=== PATIENT | male | born 1940 | race Caucasian/White ===

== ENCOUNTER 2017-08-28 17:14 | Observation (INO) ==
[2017-08-28 18:32] LABS: Hematocrit 41.6 % (42.0-52.0); Hemoglobin 13.3 gm/dL (13.5-18.0); Mean Cell Volume 93.9 fl (78-100); Mean Platelet Volume 8.6 fl (8-11.3); Neutrophil # 5.6 K/mm3 (1.3-6.0); Neutrophil % 67.5 % (42-75.0); Platelet Count 372 K/mm3 (150-450); Red Blood Count 4.43 M/mm3 (4.7-6.0); Red Cell Distribution Width 13.5 % (11.5-14.0); White Blood Count 8.3 K/mm3 (4.0-10.5)
[2017-08-28] MEDS: NORMAL SALINE 1,000 ML IV SCH ×2 (18:35→21:39)
[2017-08-28 18:56] LABS: Anion Gap 11.3 mmol/L (6.8-13.8); BUN/Creatinine Ratio 11.3 (9.0-21.6); Bilirubin, Total 0.4 mg/dL (0.0-1.1); Ca. Corrected For Albumin 9.5 mg/dL (8.4-10.2); Carbon Dioxide 31.1 mmol/L (24-32.6); Potassium 3.4 mmol/L (3.4-4.6); Total Protein 8.2 gm/dL (6.2-8.2)
[2017-08-28 19:02] LABS: Hemoglobin A1C 6.3 % (4.00-6.0)
--- NOTE | 2017-08-28 19:35 | ERNOTE ---
Lower Extremity HPI - Narrative Date of Service: 08/28/17 - General Lower Extremities Pain: leg: bilateral, foot: bilateral Time Seen by Provider: 08/28/17 17:51 Source: patient, RN notes reviewed, old records Exam Limitations: no limitations - Immun/Allergies/Home Medications Immunizations: IMMUNIZATION HX Immunizations Up to Date Yes History of Influenza Vaccine More Information Required Hx Pneumococcal Vaccination More Information Required Allergies/Adverse Reactions: Allergies Allergy/AdvReac Type Severity Reaction Status Date / Time ibuprofen Allergy Severe Anaphylaxis Verified 10/06/15 16:55 Home Medications: HOME MEDICATIONS Albuterol Sulfate [Albuterol Sulfate 0.63 MG/3ML] 0.63 mg IH QID 07/01/15 [Last Taken 10/06/15] Divalproex Sodium [Depakote ER] 500 mg PO HS #30 tab.sr.24h 10/09/15 [Last Taken Unknown] Levofloxacin [Levaquin] 750 mg PO QOD #7 tablet 10/09/15 [Last Taken Unknown] Silver Sulfadiazine [Silvadene] 1 appl TP DAILY #400 jar 10/09/15 [Last Taken Unknown] Spironolactone [Aldactone] 25 mg PO BID #60 tablet 10/09/15 [Last Taken Unknown] - History of Present Illness Narrative: Noah is a 76 year old male patient of Dr. Romero who is brought to the ED from home by a friend for increased drainage and pain in his lower legs. He reports that his legs have been edematous and red for quite sometime, but they are much worse today. He has not seen his doctor for almost 2 years. He reports not being able to afford his medication so he just stopped taking all of it. He is diabetic, has CHF and has chronic venous stasis in both legs. He reports that he washed his legs today, but his hygiene is very poor. Prior Treament: Reports: similar symptoms before. Denies: recently seen, treated by physician, currently on antibiotics Review of Systems - Review of Systems Constitutional: Present: fatigue. Absent: fever, chills EYE: Present: no symptoms reported ENT: Present: no symptoms reported Respiratory: Present: shortness of breath, cough Cardiology: Present: edema. Absent: chest pain Gastrointestinal/Abdominal: Absent: nausea, vomiting Genitourinary: Absent: dysuria, decreased urinary output Musculoskeletal: Present: muscle pain. Absent: joint pain, joint swelling Skin: Present: lesions, change in color. Absent: rash, lumps Neurological: Absent: headache, dizziness/light-headedness, weakness Endocrine: Present: no symptoms reported Hematologic/Lymphatic: Absent: easy bruising, easy bleeding Psych: Present: no symptoms reported - Patient's Past Medical History Patient History - Medical: Diabetes Type 2, Obesity, Osteoarthritis Patient History - Cardiac/Respiratory: CHF, COPD, Peripheral Vascular Disease Patient History - Cancer: No Hx of Cancer Patient History - Surgical Procedures: Appendectomy Patient History - Other: None - Family History Father Family History - Medical: , History Unknown Family History - Cardiac/Respiratory: History Unknown Mother Family History - Medical: , History Unknown Family History - Cardiac/Respiratory: History Unknown Sister Family History - Medical: No pertinent hx Family History - Cardiac/Respiratory: Hypertension - Social History Living Situations: home Abuse History: No History of abuse Psych History: No pertinent hx Smoking Status: Current every day smoker Have you smoked in the past 12 months: Yes Do you dip or chew tobacco: No Alcohol Use: none Drug Use: none - Immunizations Immunizations Up to Date: Yes Hx Pneumococcal Vaccination: More Information Required to Determine History of Influenza Vaccine: More Information Required to Determine Physical Exam - Physical Exam General Appearance: Present: alert, mild distress, obese, other - Foul, rotting odor from legs detectable from outside room, very poor hygiene Head Exam: Present: normal inspection Eye Exam: Normal inspection: bilateral Neck: Present: normal inspection, nontender, supple Respiratory: Present: no respiratory distress, no accessory muscle use, decreased breath sounds, wheezing - mild, other - frequent cough Cardiovascular/Chest: Present: regular rate, rhythm, no murmur Peripheral Pulses: N=norm/S=strong/W=weak/B=bound/A=absent: Dorsalis-pedis (R): Weak, Dorsalis-pedis (L): Weak Gastrointestinal/Abdominal: Present: nontender, soft, distended - Obese, proturburant abdomen Extremity Exam: Present: decreased range of motion - Bilateral legs and feet, pedal edema, extremity edema - Severe, bilateral lower legs and feet, tender to touch Neurological Exam: Present: alert, oriented, normal mood/affect, no motor/ sensory deficits Skin Exam: Present: warm/dry, other - Eyrthema to bilateral lower legs, chronic venous stasis skin changes, some weeping areas present, purulent drainage from right lower leg ulceration, toenails with chronic fungal infection, nails of right foot appear almost macerated ED Progress - Results and Orders Patient's Lab Results:: I have reviewed the patient's lab results. - Vital Signs Patient's Vital Signs:: I have reviewed the patient's vital signs. Vital Signs: Vital Signs 08/28/17 17:20 Temperature 36.6 C Pulse Rate 75 Respiratory 30 H Rate Blood Pressure 145/85 O2 Sat by Pulse 94 Oximetry - Progress/Reassessment Chief Complaint: Lower Extremity Pain/ Injury Progress:: Improved Plan - Plan Plan: 1 liter of NS and a gram of Rocephin given, vitals are stable and labwork is essentially unremarkable, but the condition of the patient's lower legs and feet is deplorable. He claims to have washed his legs and feet this morning, but they are extremely malodorous with purulent drainage and sloughing skin. Both lower legs and feet are erythematous and hot to touch, as well as very tender to palpation. A culture from the right lower leg ulcer and blood cultures are pending. The patient will be admitted to observation status for further IV antibiotics and wound care. Departure Clinical Impression: Bilateral lower leg cellulitis, Cellulitis of both feet, Venous stasis ulcer of right lower extremity, Self-care deficit for hygiene, Onychomycosis of multiple toenails with type 2 diabetes mellitus - Departure Disposition: Still a patient Condition: Stable
[2017-08-28 19:55] LABS: Urine Bilirubin Negative (NEGATIVE); Urine Blood Negative /ul (NEGATIVE); Urine Ketone Negative (NEGATIVE); Urine Nitrite Negative (NEGATIVE); Urine Protein Negative (NEGATIVE)
[2017-08-28 20:01] LABS: Urine Appearance Clear (CLEAR); Urine Bacteria None Seen; Urine Color Yellow; Urine RBC None Seen /hpf (0-5); Urine Squamous Epithelial Cell None Seen /hpf; Urine WBC None Seen /hpf (0-5)
--- NOTE | 2017-08-28 21:12 | HP ---
Chief Complaint - Chief Complaint Date of Service: 08/28/17 Time of Service: 21:12 Chief Complaint: " Weeping legs and pain". Source of HPI- Pt; reliable, ERP report. History of Present Illness: Mr. Doyle is a 76-yr-old WM pt of Dr. Sheng Romero with a PMH of: Athritis, Asthma, CHF, COPD, DM II and Venous Stasis Dermatitis of lower extremities. Pt was brought in to the [facility] ER by his roomate due to worsening pain and skin weeping of his legs. Pt reported that his legs have been reddened for sometime and they feel tender with any activity/ambulation. He denies fevers and chills. He has not sought any medical care for the condition and states that the main reason is due to lack of money to visit the doctor's office. The last time he saw his PCP was 2 yrs ago and he has not refilled his medications as some of them 'costed nearly $ 80-90 dollars.' He then stopped taking them completely. At ED, his BLEs were noted to be edematous, had sloughing and foul odour & with capillary leaking. There was also erythema extending up to his knees but warm to touch. Notable abnormal labs were ESR---> 84 and CRP of 10.5. Due to lack of support and general poor compliance with self care, it was necessary to admit him under observation for IV antibiotics, to consult wound care and establish C services. - Patient's Past Medical History Patient History - Medical: Diabetes Type 2, Obesity, Osteoarthritis Patient History - Cardiac/Respiratory: CHF, COPD, Peripheral Vascular Disease Patient History - Cancer: No Hx of Cancer Patient History - Surgical Procedures: Appendectomy Patient History - Other: None - Family History Father Family History - Medical: , History Unknown Family History - Cardiac/Respiratory: History Unknown Mother Family History - Medical: , History Unknown Family History - Cardiac/Respiratory: History Unknown Sister Family History - Medical: No pertinent hx Family History - Cardiac/Respiratory: Hypertension - Social History Living Situations: other Abuse History: No History of abuse Psych History: No pertinent hx Smoking Status: Current every day smoker Have you smoked in the past 12 months: Yes Do you dip or chew tobacco: No Patient requests Smoking Cessation Consult: No Initiate information on Smoking Cessation: No Alcohol Use: none Drug Use: none - Immunizations Immunizations Up to Date: Yes Hx Pneumococcal Vaccination: More Information Required to Determine History of Influenza Vaccine: More Information Required to Determine Review Of Systems (GEN) - Review of Systems Generalized/Overall Review: Present: Weakness. Absent: Chills, Fever EENTM: Absent: Eye Pain, Blurred Vision, Double Vision Respiratory: Absent: Cough, Shortness of Breath, Orthopnea Cardiac: Absent: Chest Pain, Edema, Palpitations, Syncope Abdominal: Absent: Nausea, Vomiting, Hematemesis, Abdominal Pain, Constipation Genitourinary: Absent: Burning, Itching, Urgency, Frequency Musculoskeletal: Absent: Joint Pain, Back Pain Neurological: Absent: Headache, Anxiety, Depressed, Emotional Problems Skin: Present: Dryness, Lesions Endocrine: Absent: Intolerance to Cold, Flushing, Increased Thirst Misc: All systems neg except as marked Immunizations: IMMUNIZATION HX Immunizations Up to Date Yes History of Influenza Vaccine More Information Required Hx Pneumococcal Vaccination More Information Required Allergies/Adverse Reactions: Allergies Allergy/AdvReac Type Severity Reaction Status Date / Time ibuprofen Allergy Severe Anaphylaxis Verified 08/28/17 20:50 Home Medications: HOME MEDICATIONS Albuterol Sulfate [Albuterol Sulfate 0.63 MG/3ML] 0.63 mg IH QID 07/01/15 [Last Taken 10/06/15] Exam - Exam Vital Signs: Vital Signs - Last Taken Temp 36.0 C L 08/28/17 20:52 Pulse 80 08/28/17 20:52 Resp 22 H 08/28/17 20:52 BP 179/80 08/28/17 20:52 Pulse Ox 96 08/28/17 20:52 Constitutional: Present: Alert, Oriented x3, Cooperative, Obese ENT Exam: Present: normal ENT inspection, hearing grossly normal Eye Exam: bilateral eye: normal inspection, PERRL Neck: Present: non-tender, full range of motion, supple Back Exam: Present: normal inspection, no CVA tenderness Breasts: Present: Exam deferred Respiratory: Present: No rales, No wheezing Cardiovascular/Chest: Present: normal peripheral pulses, regular rate, rhythm, no chest tenderness Abdomen: Present: Normal bowel sounds, soft, nontender, obese /Rectal: Present: Exam deferred Extremity: Present: lower extremity edema Skin Exam: Present: other - Erythema and weeping on BLE, Ulcer on RLE with sloughing, Lymphatic: Present: no adenopathy Neurologic: Present: alert, normal mood/affect, oriented x 3 Appearance: Present: appropriate insight, disheveled Eye contact: Present: cooperative, good eye contact, normal speech Thoughts: Present: no apparent hallucination Diagnostic Studies: Abnormal Lab Results 08/28/17 Range/Units Unknown Urine Urobilinogen 2.0 H (NORMAL) EU/dl Laboratory Results WBC 8.3 K/mm3 (4.0-10.5) 08/28/17 18:20 RBC 4.43 M/mm3 (4.7-6.0) L 08/28/17 18:20 Hgb 13.3 gm/dL (13.5-18.0) L 08/28/17 18:20 Hct 41.6 % (42.0-52.0) L 08/28/17 18:20 MCV 93.9 fl (78-100) 08/28/17 18:20 MCH 30.0 pg (27-31) 08/28/17 18:20 MCHC 32.0 g/dl (32-36) 08/28/17 18:20 RDW 13.5 % (11.5-14.0) 08/28/17 18:20 Plt Count 372 K/mm3 (150-450) 08/28/17 18:20 MPV 8.6 fl (8-11.3) 08/28/17 18:20 Immature Gran % (Auto) 0.50 % (0.001-0.429) H 08/28/17 18:20 Immature Gran # (Auto) 0.04 K/mm3 (0.000-0.0310) H 08/28/17 18:20 Neutrophils % 67.5 % (42-75.0) 08/28/17 18:20 Lymphocytes % 15.3 % (20-51) L 08/28/17 18:20 Monocytes % 11.8 % (0.0-9) H 08/28/17 18:20 Eosinophils % 4.1 % (0.0-3.0) H 08/28/17 18:20 Basophils % 0.8 % (0.0-1.0) 08/28/17 18:20 Nucleated RBC % 0.0 k/mm3 (0-1) 08/28/17 18:20 Neutrophils # 5.6 K/mm3 (1.3-6.0) 08/28/17 18:20 Lymphocytes # 1.27 k/mm3 (1.5-3.5) L 08/28/17 18:20 Monocytes # 1.0 k/mm3 (0.0-1.0) 08/28/17 18:20 Eosinophils # 0.3 k/mm3 (0.0-0.7) 08/28/17 18:20 Absolute Basophils 0.1 k/mm3 (0.0-0.1) 08/28/17 18:20 Sodium 137 mmol/L (132-142) 08/28/17 18:20 Plasma Sodium 137 mmol/L (130-142) 08/28/17 18:20 Potassium 3.4 mmol/L (3.4-4.6) 08/28/17 18:20 Chloride 98 mmol/L (97-106) 08/28/17 18:20 Carbon Dioxide 31.1 mmol/L (24-32.6) 08/28/17 18:20 Anion Gap 11.3 mmol/L (6.8-13.8) 08/28/17 18:20 BUN 13 mg/dL (6-23) 08/28/17 18:20 Creatinine 1.15 mg/dL (0.4-1.4) 08/28/17 18:20 Est GFR (Non-Af Amer) 66 mL/min (60-130) 08/28/17 18:20 BUN/Creatinine Ratio 11.3 (9.0-21.6) 08/28/17 18:20 Random Glucose 84 mg/dL (70-110) 08/28/17 18:20 Mean Blood Glucose 124 mg/dL 08/28/17 18:20 Hemoglobin A1c 6.3 % (4.00-6.0) H 08/28/17 18:20 Lactic Acid, Venous 1.6 mmol/L (0.4-1.9) 08/28/17 18:20 Calcium 9.0 mg/dL (7.9-10.9) 08/28/17 18:20 Calcium Adj for Albumin 9.5 mg/dL (8.4-10.2) 08/28/17 18:20 Total Bilirubin 0.4 mg/dL (0.0-1.1) 08/28/17 18:20 AST 14 U/L (0-48) 08/28/17 18:20 ALT 17 U/L (19-67) L 08/28/17 18:20 Alkaline Phosphatase 70 U/L (50-170) 08/28/17 18:20 B-Natriuretic Peptide 143 pg/mL (5-650) 08/28/17 18:20 Total Protein 8.2 gm/dL (6.2-8.2) 08/28/17 18:20 Albumin 3.0 gm/dl (3.4-5.0) L 08/28/17 18:20 Urine Color Yellow 08/28/17 Unknown Urine Appearance Clear (CLEAR) 08/28/17 Unknown Urine pH 6.0 pH (5.0-7.0) 08/28/17 Unknown Ur Specific [place] 1.020 SP.GR. (1.005-1.030) 08/28/17 Unknown Urine Protein Negative mg/dL (NEGATIVE) 08/28/17 Unknown Urine Glucose (UA) Negative mg/dL (NEGATIVE) 08/28/17 Unknown Urine Ketones Negative mg/dL (NEGATIVE) 08/28/17 Unknown Urine Blood Negative /ul (NEGATIVE) 08/28/17 Unknown Urine Nitrate Negative (NEGATIVE) 08/28/17 Unknown Urine Bilirubin Negative mg/dl (NEGATIVE) 08/28/17 Unknown Urine Urobilinogen 2.0 EU/dl (NORMAL) H 08/28/17 Unknown Ur Leukocyte Esterase Negative /ul (NEGATIVE) 08/28/17 Unknown Urine RBC None seen /hpf (0-5) 08/28/17 Unknown Urine WBC None seen /hpf (0-5) 08/28/17 Unknown Ur Epithelial Cells None seen /hpf (0-5) 08/28/17 Unknown Ur Squamous Epith Cells None seen /hpf (NONE) 08/28/17 Unknown Urine Bacteria None seen (NONE) 08/28/17 Unknown Urine Culture Comments No culture indicated 08/28/17 Unknown Assessment/Plan - Assessment/Plan (1) Venous stasis ulcer of right lower extremity Assessment: Has open ulcer on RLE. Swabbing of the ulcer would be unnecessary as its likely heavily contaminated with gram positive and gram negative bacteria. Will cover with antibiotics for now due to tenderness, erythema and elevated CRP and ESR. Consult wound care and will need [facility] services established. Problem: Acute (2) Cellulitis of both feet Assessment: Plan as above. Cover with Vancomycin. Await blood culture results. Consult wound care to provide recommendations on care of the venous stasis ulcers. Problem: Acute (3) CHF (congestive heart failure) Assessment: Resume Lasix, Spironolactone & KCL Problem: Chronic (4) COPD (chronic obstructive pulmonary disease) Assessment: Prn duoneb. Resume Advair. Problem: Chronic Qualifiers: COPD type: COPD with acute exacerbation Qualified Code(s): J44.1 - Chronic obstructive pulmonary disease with (acute) exacerbation (5) Diabetes Assessment: Stable for now. Laboratory Tests 09/19/15 08/28/17 10:31 18:20 Hemoglobin A1c 6.5 H 6.3 H Problem: Chronic Qualifiers: Diabetes mellitus type: type 2
[2017-08-28] MEDS ORDERED: VANCOMYCIN HCL 1 GM in DEXTROSE 5 % IN WATER 250 ML IV SCH ×2 (23:30)
[2017-08-28] MEDS ORDERED: VANCOMYCIN HCL LEVEL XX ONE (23:45)
[2017-08-29] MEDS ORDERED: VANCOMYCIN HCL 2 GM in DEXTROSE 5 % IN WATER 500 ML IV SCH ×2
[2017-08-29] MEDS ORDERED: ALBUTEROL SULFATE/IPRATROPIUM 3 ML NEBU IH PRN (00:03)
[2017-08-29] MEDS: LISINOPRIL 10 MG TABLET PO SCH ×2 (00:29→08:09)
[2017-08-29] MEDS: HYDROcodone/ACETAMINOPHEN 1 EACH TABLET PO PRN ×4 (00:29→15:53)
[2017-08-29] MEDS ORDERED: POTASSIUM CHLORIDE 20 MEQ TABLET.SA PO SCH (00:30)
[2017-08-29] MEDS: FUROSEMIDE 40 MG TABLET PO SCH ×2 (00:38→08:10)
[2017-08-29] MEDS: SPIRONOLACTONE 25 MG TABLET PO SCH ×2 (00:38→08:09)
[2017-08-29 06:01] LABS: Anion Gap 9.8 mmol/L (6.8-13.8); BUN/Creatinine Ratio 7.7 (9.0-21.6); Calcium * 8.2 mg/dL (7.9-10.9); Estimated Creat Clear 49.4; Potassium 3.8 mmol/L (3.4-4.6)
[2017-08-29] MEDS ORDERED: FLUCONAZOLE 150 MG TABLET PO ONE (07:19)
[2017-08-29] MEDS ORDERED: SULFAMETHOXAZOLE/TRIMETHOPRIM 1 TAB TABLET PO SCH (07:30)
[2017-08-29] MEDS ORDERED: [UNRECOGNIZED DRUG - OTHER] TP SCH (07:30)
[2017-08-29] MEDS: ALBUTEROL SULFATE/IPRATROPIUM 3 ML NEBU IH SCH ×3 (07:53→14:57)
[2017-08-29] MEDS ORDERED: ASPIRIN 325 MG TABLET.DR PO SCH (09:00)
[2017-08-29] MEDS ORDERED: POTASSIUM CHLORIDE 10 MEQ TABLET.SA PO SCH (09:00)
[2017-08-29] MEDS ORDERED: CLOTRIMAZOLE 30 APPL TUBE TP SCH (09:00)
--- NOTE | 2017-08-29 12:17 | DS ---
(1) Onychomycosis of multiple toenails with type 2 diabetes mellitus Problem: Acute (2) Venous stasis ulcer of right lower extremity Problem: Acute (3) CHF (congestive heart failure) Problem: Chronic Qualifiers: Heart failure type: diastolic (4) Cellulitis and abscess of leg, except foot Problem: Acute (5) COPD (chronic obstructive pulmonary disease) Problem: Chronic Qualifiers: COPD type: COPD with acute exacerbation Qualified Code(s): J44.1 - Chronic obstructive pulmonary disease with (acute) exacerbation (6) Diabetes Problem: Chronic Qualifiers: Diabetes mellitus type: type 2 Diabetes mellitus longterm insulin use: without keno terminal operator use Diabetes mellitus complication status: with neurologic complications Diabetes mellitus complication detail: with polyneuropathy Qualified Code(s): E11.42 - Type 2 diabetes mellitus with diabetic polyneuropathy (7) Diastolic CHF, chronic Problem: Chronic (8) Tobacco abuse Problem: Chronic Description of Stay: Pt. admitted for possible cellulitis with abscess that started self draining in the ER. WBC was wnl with no left shift, no fevers, but did have significant pain and elevated ESR of 89 and CRP 10.5. Culture of his abscess was growing out Gram negatives so vanco was d/c'd and bactrim started, but will change to cipro at time of discharge to cover pseudomonas as the most likely G(-) cause of his infection. Wound clinic consult was done. He had significant yeast infection of his LE and was given single dose of diflucan, followed by clotrimazole cream. For his DM2, no meds were started and his sugars remained in the low 100's. For his HTN lisinopril was restarted as BP's were in the 170's, though some of this could be due to pain. His CHF was stable, except for the severe LE edema and venous stasis changes, therefore furoside, spironolactone was restarted. COPD - duoneb tx's given here in the hospital. His lungs were better just with a couple treatments. compliance and tobacco abuse issues. Pt. states he can't afford meds, but will buy his cigarettes. D/w him. He states he'll try to quite and get his medications. Homebound: pt. is homebound in that he does not leave the home without assistance. He does not typically have transportation which creates a barrier to him getting to Dr. henry and his current issues with his legs. HH will be helpful to constantly assess him and should be able to maintain better compliance and therefore decrease his chance of readmission from his wounds, his CHF, his COPD and/or his HTN and DM2. Procedures Performed: none Discharge Location: Home Disposition: Home Health Service [facility] Agency: [facility] Home Health Condition: Stable Discharge Activity: Activity as tolerated Discharge Diet: Consistent carbs Referrals: Sheng Romero MD [Primary Care Provider] - One Week Additional Patient Instructions (free text): -Please make TCM appointment unless long term discharge. Thank you! Savita @ [phone]. Courtesy van for transportation to follow up appointments. [facility] new.Nursing for wound care and bath aide. Wound care orders- Please fax orders, face to face and call report upon discharge. Prescriptions (Any new or edited meds): Albuterol Sulfate/Ipratropium [Duoneb 2.5-0.5MG/3ML Soln] 3 ml IH Q4HRT PRN #60 nebu PRN Reason: Shortness Of Breath Ciprofloxacin HCl [Cipro] 500 mg PO BID #20 tablet Clotrimazole [Lotrimin Cream] 1 appl TP BID #1 tube HYDROcodone/ACETAMINOPHEN [[place] 5-325] 1 each PO Q4H PRN #30 tablet PRN Reason: Moderate Pain (Pain Scale 4-6) Lisinopril [Zestril] 10 mg PO DAILY #30 tablet Spironolactone [Aldactone] 25 mg PO BID #60 tablet Complete Home Medications List: Complete Home Medication List: Albuterol Sulfate [Albuterol Sulfate 0.63 MG/3ML] 0.63 mg IH QID 07/01/15 Albuterol Sulfate/Ipratropium [Duoneb 2.5-0.5MG/3ML Soln] 3 ml IH Q4HRT PRN #60 nebu 08/29/17 Aspirin [Aspirin Enteric Coated] 325 mg PO DAILY tablet. 08/29/17 Ciprofloxacin HCl [Cipro] 500 mg PO BID #20 tablet 08/29/17 Clotrimazole [Lotrimin Cream] 1 appl TP BID #1 tube 08/29/17 HYDROcodone/ACETAMINOPHEN [[place] 5-325] 1 each PO Q4H PRN #30 tablet 08/29/17 Lisinopril [Zestril] 10 mg PO DAILY #30 tablet 08/29/17 Spironolactone [Aldactone] 25 mg PO BID #60 tablet 08/29/17
--- NOTE | 2017-08-29 13:19 | CONS ---
[facility] - General Date of Service: 08/29/17 Narrative: Patient is a 76 year old male, recently admitted to the hospital regarding lower extremity drainage, swelling and pain. He states that this is a long standing issue and he has experienced swelling and drainage from his lower legs for years. He states that he recently presented to the Emergency Department due to his legs draining fluid "all over the floor". His past medical history includes Arthritis, Asthma, CHF, COPD, Diabetes, Venous stasis. He denies any treatment of the areas prior to hospitalization. He states that he has not been evaluated by a physician for years due to financial reasons. He describes pain with elevation of the legs. Source: patient Exam Limitations: no limitations - History of Present Illness Timing/Duration: constant Severity: moderate Associated Symptoms: shortness of breath Allergies/Adverse Reactions: Allergies ibuprofen Allergy (Severe, Verified 08/28/17 20:50) Anaphylaxis Home Medications: Home Medications Medication Instructions Recorded Last Taken Albuterol Sulfate [Albuterol 0.63 mg IH QID 07/01/15 10/06/15 Sulfate 0.63 MG/3ML] - Patient's Past Medical History Patient History - Medical: Diabetes Type 2, Obesity, Osteoarthritis Patient History - Cardiac/Respiratory: CHF, COPD, Peripheral Vascular Disease Patient History - Cancer: No Hx of Cancer Patient History - Surgical Procedures: Appendectomy Patient History - Other: None - Family History Father Family History - Medical: , History Unknown Family History - Cardiac/Respiratory: History Unknown Mother Family History - Medical: , History Unknown Family History - Cardiac/Respiratory: History Unknown Sister Family History - Medical: No pertinent hx Family History - Cardiac/Respiratory: Hypertension - Social History Living Situations: other Abuse History: No History of abuse Psych History: No pertinent hx Smoking Status: Current every day smoker Have you smoked in the past 12 months: Yes Do you dip or chew tobacco: No Patient requests Smoking Cessation Consult: No Initiate information on Smoking Cessation: No Alcohol Use: none Drug Use: none - Immunizations Immunizations Up to Date: Yes Hx Pneumococcal Vaccination: More Information Required to Determine History of Influenza Vaccine: More Information Required to Determine Procedures CATARAC PHACOEMULS/ASPIR (11/18/06) IMMOBILIZATION OF LEFT LOWER EXTREMITY USING SPLINT (01/26/15) INSERT LENS AT CATAR EXT (11/18/06) MEASURE OF ARTERIAL SATURATION, PERIPHERAL, PERC APPROACH (06/10/15) REMOVAL OF FB NOS (09/03/00) Medications - Medications Current Medications: Current Medications Hydrocodone Bitart/Acetaminophen ([place] 5-325) 1 each PO Q4H PRN PRN Reason: Moderate Pain (pain scale 4-6) Stop: 09/28/17 00:02 Last Admin: 08/29/17 11:44 Dose: 1 each Albuterol/Ipratropium (Duoneb 2.5-0.5mg/3ml Soln) 3 ml IH Q4HRT UMAIR Stop: 09/28/17 07:16 Last Admin: 08/29/17 11:14 Dose: 3 ml Aspirin (Aspirin Enteric Coated) 325 mg PO DAILY [facility] Stop: 09/28/17 09:01 Last Admin: 08/29/17 08:10 Dose: 325 mg Clotrimazole (Lotrimin Cream) 1 appl TP BID [facility] Stop: 09/28/17 09:01 Last Admin: 08/29/17 11:30 Dose: 1 appl Furosemide (Lasix) 40 mg PO DAILY UMAIR Stop: 09/28/17 00:31 Last Admin: 08/29/17 08:10 Dose: 40 mg Lisinopril (Zestril) 10 mg PO DAILY [facility] Stop: 09/27/17 23:31 Last Admin: 08/29/17 08:09 Dose: 10 mg Spironolactone (Aldactone) 25 mg PO BID [facility] Stop: 09/28/17 00:31 Last Admin: 08/29/17 08:09 Dose: 25 mg Trimethoprim/Sulfamethoxazole (Bactrim Ds) 1 tab PO BID [facility] PRN Reason: Protocol Stop: 09/08/17 07:31 Last Admin: 08/29/17 08:10 Dose: 1 tab Review of Systems - Review of Systems Generalized/Overall Review: Present: Weakness EENTM: Absent: Nose Congestion Respiratory: Present: Shortness of Breath. Absent: Cough Cardiac: Present: Edema. Absent: Chest Pain Abdominal: Absent: Nausea, Vomiting Musculoskeletal: Present: Joint Pain Neurological: Present: Numbness, Tingling Skin: Present: Lesions Physical Examination - Exam Vital Signs: Vital Signs - Last Taken Temp 36.8 C 08/29/17 06:24 Pulse 71 08/29/17 11:24 Resp 20 08/29/17 11:24 BP 141/78 08/29/17 08:10 Pulse Ox 94 08/29/17 11:14 O2 Oxygen Delivery Method Room Air Constitutional: Present: Alert, No distress, Obese ENT Exam: Present: hearing grossly normal Respiratory: Present: normal breath sounds Skin Exam: Present: warm/dry, other - bilateral lower extremities are edematous. large amounts of dry, flaky skin. 2+ pitting edema. capillary refil is <3 seconds. there are several small areas with moderate amount of serous drainage. Eye contact: Present: cooperative, good eye contact, normal speech - Results and Findings: Narrative: Recommend using Aquacel Ag to the draining areas on bilateral lower extremities. This will be covered with gauze and secured with tape. The dressing should be changed daily and washed with soap and water at dressing changes. He needs compression, and should wear two layers of tubigrip at the least. He would benefit from compression stockings. We would be happy to continue the patient's care in the [facility] on an out patient basis. Thank you for this consult. Lab/Microbiology results last 24 hrs: Abnormal/Pending Laboratory Last 24 HRS 08/29/17 08/28/17 08/28/17 05:10 Unknown 21:12 ESR BUN/Creatinine Ratio 7.7 L Random Glucose 123 H D C-Reactive Prot, Quant 10.5 H Urine Urobilinogen 2.0 H 08/28/17 21:12 ESR 89 H BUN/Creatinine Ratio Random Glucose C-Reactive Prot, Quant Urine Urobilinogen - Assessments/Findings (1) Bilateral lower leg cellulitis Problem: Acute (2) Stasis dermatitis of both legs Problem: Acute
[2017-08-29 17:09] VITALS: BP 150/77
== END 2017-08-29 17:54 | disposition home health service (06) ==
LOC: ER 17:14 → MS 20:12
PROVIDERS: ADMIT Internal Medicine; ATTEND Family Medicine
DX: L03.116 Cellulitis of left lower limb; J44.1 Chronic obstructive pulmonary disease with (acute) exacerbation; I10 Essential (primary) hypertension; I87.8 Other specified disorders of veins; I87.2 Venous insufficiency (chronic) (peripheral); Z68.41 Body mass index [BMI] 40.0-44.9, adult; E66.9 Obesity, unspecified; F17.210 Nicotine dependence, cigarettes, uncomplicated; E11.42 Type 2 diabetes mellitus with diabetic polyneuropathy; B35.1 Tinea unguium; L03.115 Cellulitis of right lower limb; B96.89 Other specified bacterial agents as the cause of diseases classified elsewhere; I50.32 Chronic diastolic (congestive) heart failure
CPT/HCPCS: 36415; 71010; 71045; 80048; 80053; 81001; 83036; 83519; 83605; 83880; 85025; 85652; 86140; 87040; 87070; 87077; 87081; 87186; 94640; 94664; 96361; 96365; 96366; 96367; 99284; G0378

== ENCOUNTER 2018-03-07 16:22 | Inpatient (IN) ==
--- NOTE | 2018-03-07 16:38 | ERNOTE ---
ENT HPI Presenting Symptoms: nosebleed Time Seen by Provider: 03/07/18 16:22 Source: patient Exam Limitations: no limitations - Immun/Allergies/Home Medications Immunizations: IMMUNIZATION HX Immunizations Up to Date Yes History of Influenza Vaccine No Hx Pneumococcal Vaccination No Allergies/Adverse Reactions: Allergies Allergy/AdvReac Type Severity Reaction Status Date / Time ibuprofen Allergy Severe Anaphylaxis Verified 03/05/18 09:06 Home Medications: HOME MEDICATIONS Aspirin [Aspirin Enteric Coated] 325 mg PO DAILY tablet. 08/29/17 [Last Taken Unknown] Clotrimazole [Lotrimin Cream] 1 appl TP BID #1 tube 08/29/17 [Last Taken Un known] HYDROcodone/ACETAMINOPHEN [[place] 5-325] 1 ea PO Q4H PRN #30 tab 08/29/17 [Last Taken Unknown] Lisinopril [Zestril] 10 mg PO DAILY #30 tab 08/29/17 [Last Taken Unknown] Spironolactone [Aldactone] 25 mg PO BID #60 tab 08/29/17 [Last Taken Unknown] albuterol sulfate 2.5 mg/3 mL (0.083 %) solution for nebulization 2.5 mg IH QID 09/14/17 [Last Taken Unknown] Mometasone Furoate 1 gm TP DAILY #1 cream..g. 10/01/17 [Last Taken Unknown] Mometasone Furoate 1 gm TP DAILY #1 cream..g. 10/30/17 [Last Taken Unknown] gabapentin 600 mg tablet 600 mg PO HS #30 tab 12/08/17 [Last Taken Unknown] - History of Present Illness Narrative: Patient was seen in the Er for a right nose bleed two days ago, had a nasal rocket placed. He returned yesterday as the rocket was displaced and he was bleeding with clots again. He had another rocket placed, his Hb was 7.6 He states that he had no more bleeding through the night but just couldn't get comfortable. This afternoon he started bleeding from his left nare and spit up a large blood clot, called EMS, no bleeding on the ambulance, none on arrival in the ER Date (Duration): 03/05/18 ENT Location: Present: nose Associated Symptoms - ENT: Reports: malaise. Denies: fever, cough, sore throat Prior Treament: Reports: recently seen, similar symptoms before Review of Systems - Review of Systems Constitutional: Present: fatigue, malaise. Absent: fever, chills ENT: Present: See HPI Respiratory: Absent: shortness of breath, cough Cardiology: Absent: chest pain Gastrointestinal/Abdominal: Absent: nausea, abdominal pain Genitourinary: Present: no symptoms reported Neurological: Absent: headache Hematologic/Lymphatic: Absent: easy bruising, easy bleeding Psych: Present: anxiety Medical History (Last Reviewed 03/07/18 @ 16:34 by Divya Arambula MD) Allergic rhinitis Onset Date: ~07/22/15 Arthritis Asthma Back pain COPD (chronic obstructive pulmonary disease) Cellulitis 11/2014, 08/29/17 Congestive heart failure Onset Date: ~10/29/15 Diabetes Onset Date: ~03/25/15 Localized edema Onset Date: ~03/02/15 Stasis dermatitis of left lower extremity due to peripheral venous hypertension Onset Date: ~08/03/15 Venous stasis dermatitis of both lower extremities Onset Date: ~03/25/15 Surgical History: Surgical History (Last Reviewed 03/07/18 @ 16:34 by Divya Arambula MD) Hx of appendectomy Onset Date: ~1959 Family History: Family History (Last Reviewed 03/07/18 @ 17:39 by Hailey Yin RN) Father Liver cancer Mother Brain tumor Sister Hypertension Social History: Preferred Language Kazakh Do you have any latter day or No cultural preference? Smoking Status Current some day smoker Have you smoked in the past 12 Yes months Do you dip or chew tobacco No Abuse History No History of abuse Psych History No pertinent hx Alcohol Use none Drug Use none (Last Updated 12/13/17 @ 08:28 by Sheng Romero MD) No Social History Section defined Physical Exam - Physical Exam General Appearance: Present: wd/wn, alert, no apparent distress, anxious, obese, other - unkept and dirty, T-shirt torn Eye Exam: Normal inspection: bilateral, PERRL: bilateral Ears, Nose, Throat: Present: normal except -, normal pharynx, other - right nare with nasal rocket in place, no active bleeding, patient spits out saliva that is slightly blood tinged Respiratory: Present: no respiratory distress, normal breath sounds, chest nontender, lungs clear Cardiovascular/Chest: Present: regular rate, rhythm, no murmur Gastrointestinal/Abdominal: Present: nontender, nondistended, soft Extremity Exam: Present: no edema Neurological Exam: Present: alert, oriented, normal mood/affect Skin Exam: Present: warm/dry, pallor Progress - Results and Orders Patient's Lab Results:: I have reviewed the patient's lab results. - Vital Signs Patient's Vital Signs:: I have reviewed the patient's vital signs. Vital Signs: Vital Signs 03/07/18 16:24 Temperature 36.4 C Pulse Rate 85 Respiratory Rate 19 Blood Pressure 136/71 O2 Sat by Pulse Oximetry 96 - Progress/Reassessment Chief Complaint: Nose Bleed Progress Note-Subjective: 03/07/18 17:23 discussed lab results with patient, patient agrees to admission for blood transfusion as patient is not bleeding no need for transfer to ENT 03/07/18 17:25 discussed with mariely San to admit for observation, trasnfuse 2 units of RBC, give 20mg of lasix in between discussed how to remove the nasal rocket in the morning Departure Clinical Impression: Acute blood loss anemia, Right-sided nosebleed - Departure Disposition: Still a patient Condition: Stable
[2018-03-07 17:08] LABS: Albumin * 3.3 gm/dl (3.4-5.0); Anion Gap 11.1 mmol/L (6.8-13.8); Bilirubin, Total 0.5 mg/dL (0.0-1.1); Ca. Corrected For Albumin 8.7 mg/dL (8.4-10.2); Calcium * 8.5 mg/dL (7.9-10.9); Carbon Dioxide 30.6 mmol/L (24-32.6); Potassium 3.7 mmol/L (3.4-4.6); Total Protein 6.8 gm/dL (6.2-8.2)
[2018-03-07 17:11] LABS: Mean Cell Volume 97.3 fl (78-100); Mean Corpuscular Hemoglobin 30.8 pg (27-31); Mean Corpuscular Hgb Conc 31.6 g/dl (32-36); Mean Platelet Volume 9.4 fl (8-11.3); NRBC# 0.1 k/mm3 (0-1); Neutrophil # 6.2 K/mm3 (1.3-6.0); Neutrophil % 70.9 % (42-75.0); Platelet Count 302 K/mm3 (150-450); Red Blood Count 2.21 M/mm3 (4.7-6.0); Red Cell Distribution Width 14.6 % (11.5-14.0); White Blood Count 8.8 K/mm3 (4.0-10.5)
[2018-03-07 17:14] LABS: Hemoglobin 6.8 gm/dL (13.5-18.0)
[2018-03-07 17:15] LABS: Hematocrit 21.5 % (42.0-52.0)
[2018-03-07 17:53] LABS: Prothrombin Time (Patient) 10.5 Seconds (9.0-11.0)
[2018-03-07] MEDS ORDERED: FUROSEMIDE 10 MG/ML VIAL IV ONE (17:55)
[2018-03-07 17:58] LABS: INR 1.05 INR (0.90-1.10); Partial Thrombolplastin Time 21.2 Seconds (24-32)
--- NOTE | 2018-03-07 19:01 | HP ---
Chief Complaint - Chief Complaint Date of Service: 03/07/18 Time of Service: 18:49 Chief Complaint: Recurrent epistaxis, weakness, feeling cold, acute hemorrhagic anemia History of Present Illness: Mr. Doyle is a 77-year-old male who started having right sided epistaxis last . He came to the emergency room and had a nasal trumpet in that was a 7.5 cm. It started bleeding around that and he was returned to the emergency room. The long trumpet but was replaced with a short one as the bleeding appears to be the right side of Hasselbecks Plexus. His hemoglobin on was 7.4 g. He returns today with bleeding and weakness and a hemoglobin of 6.8 g. The bleeding had stopped in the emergency room but when I saw him in his patient room he was sitting on the edge of the bed and having recurrent leading coming out of the left nostril. The trumpet is still in the right nostril. 15 minutes later the bleeding seems to have stopped again. Has a feeling of being very cold insurance from his acute anemia. He'll be watched overnight and monitored. He'll receive 2 units of packed red blood cells and 20 mg of Lasix after the first unit of blood is infused. Medical History (Last Reviewed 03/07/18 @ 16:34 by Divya Arambula MD) Allergic rhinitis Onset Date: ~07/22/15 Arthritis Asthma Back pain COPD (chronic obstructive pulmonary disease) Cellulitis 11/2014, 08/29/17 Congestive heart failure Onset Date: ~10/29/15 Diabetes Onset Date: ~03/25/15 Localized edema Onset Date: ~03/02/15 Stasis dermatitis of left lower extremity due to peripheral venous hypertension Onset Date: ~08/03/15 Venous stasis dermatitis of both lower extremities Onset Date: ~03/25/15 Surgical History: Surgical History (Last Reviewed 03/07/18 @ 16:34 by Divya Arambula MD) Hx of appendectomy Onset Date: ~1958 Family History: Family History (Last Reviewed 03/07/18 @ 17:39 by Hailey Yin RN) Father Liver cancer Mother Brain tumor Sister Hypertension Social History: Preferred Language German Do you have any methodist or No cultural preference? Smoking Status Current some day smoker Have you smoked in the past 12 Yes months Do you dip or chew tobacco No Abuse History No History of abuse Psych History No pertinent hx Alcohol Use none Drug Use none (Last Updated 12/13/17 @ 08:28 by Sheng Romero MD) No Social History Section defined Review Of Systems (GEN) - Review of Systems Generalized/Overall Review: Present: Weakness, Chills, Fatigue EENTM: Present: Other - Right-sided epistaxis Respiratory: Present: No Symptoms Reported Cardiac: Present: No Symptoms Reported Abdominal: Present: No Symptoms Reported Genitourinary: Present: No Symptoms Reported Musculoskeletal: Present: No Symptoms Reported Neurological: Present: Weakness Skin: Present: Change in Color Endocrine: Present: No Symptoms Reported Immunizations: IMMUNIZATION HX Immunizations Up to Date Yes History of Influenza Vaccine No Hx Pneumococcal Vaccination No Allergies/Adverse Reactions: Allergies Allergy/AdvReac Type Severity Reaction Status Date / Time ibuprofen Allergy Severe Anaphylaxis Verified 03/05/18 09:06 Home Medications: HOME MEDICATIONS Aspirin [Aspirin Enteric Coated] 325 mg PO DAILY tablet. 08/29/17 [Last Taken Unknown] Clotrimazole [Lotrimin Cream] 1 appl TP BID #1 tube 08/29/17 [Last Taken Unknown] HYDROcodone/ACETAMINOPHEN [[place] 5-325] 1 ea PO Q4H PRN #30 tab 08/29/17 [Last Taken Unknown] Lisinopril [Zestril] 10 mg PO DAILY #30 tab 08/29/17 [Last Taken Unknown] Spironolactone [Aldactone] 25 mg PO BID #60 tab 08/29/17 [Last Taken Unknown] albuterol sulfate 2.5 mg/3 mL (0.083 %) solution for nebulization 2.5 mg IH QID 09/14/17 [Last Taken Unknown] Mometasone Furoate 1 gm TP DAILY #1 cream..g. 10/01/17 [Last Taken Unknown] Mometasone Furoate 1 gm TP DAILY #1 cream..g. 10/30/17 [Last Taken Unknown] gabapentin 600 mg tablet 600 mg PO HS #30 tab 12/08/17 [Last Taken Unknown] Exam - Exam Vital Signs: Vital Signs - Last Taken Temp 36.4 C 03/07/18 16:24 Pulse 79 03/07/18 17:28 Resp 18 03/07/18 17:28 BP 128/51 03/07/18 17:28 Pulse Ox 96 03/07/18 17:28 Constitutional: Present: Alert, Oriented x3, Cooperative, Well developed, Well nourished, No distress, Moderate distress, Obese ENT Exam: Present: pharynx normal, TMs normal, hard of hearing, nasal congestion, nasal drainage - Bloody mucus, other - Right nasal trumpet in place Eye Exam: bilateral eye: normal inspection, PERRL, EOMI, conjunctivae pale Neck: Present: non-tender, limited range of motion Back Exam: Present: normal inspection, no CVA tenderness, no vertebral tenderness Breasts: Present: Exam deferred Respiratory: Present: chest non-tender, lungs clear, normal breath sounds, no respiratory distress, no accessory muscle use Cardiovascular/Chest: Present: normal peripheral pulses, regular rate, rhythm, no chest tenderness, no edema, no gallop, no JVD, no murmur, no rub Peripheral Pulses: carotid (R): 2+, carotid (L): 2+, radial (R): 2+, radial (L): 2+ Abdomen: Present: Normal bowel sounds, soft, nontender, nondistended, no rebound tenderness, no hepatospenomegaly, no masses /Rectal: Present: Exam deferred Extremity: Present: normal range of motion - For age, non-tender, normal inspection, no pedal edema, no calf tenderness, normal capillary refill Skin Exam: Present: cool/dry, pallor Lymphatic: Present: no adenopathy Neurologic: Present: media specialist II-XII nml as tested. Absent: normal cerebellar test - Unable to test at this time Appearance: Present: appropriate appearance, appropriate insight, neat Eye contact: Present: cooperative, good eye contact, normal speech Thoughts: Present: normal thought pattern, no apparent hallucination Diagnostic Studies: Abnormal Lab Results 03/07/18 03/07/18 03/07/18 Range/Units 16:39 16:39 Unknown RBC 2.21 L (4.7-6.0) M/mm3 Hgb 6.8 L* (13.5-18.0) gm/dL Hct 21.5 L* (42.0-52.0) % MCHC 31.6 L (32-36) g/dl RDW 14.6 H (11.5-14.0) % Immature Gran % (Auto) 1.80 H (0.001-0.429) % Immature Gran # (Auto) 0.16 H (0.000-0.0310) K/mm3 Lymphocytes % 15.8 L (20-51) % Monocytes % 9.6 H (0.0-9) % Neutrophils # 6.2 H (1.3-6.0) K/mm3 Lymphocytes # 1.39 L (1.5-3.5) k/mm3 PTT (Benigno) 21.2 L (24-32) Seconds Est GFR (Non-Af Amer) 54 L (60-130) mL/min Random Glucose 117 H (70-110) mg/dL ALT 14 L (19-67) U/L Albumin 3.3 L (3.4-5.0) gm/dl Laboratory Results WBC 8.8 K/mm3 (4.0-10.5) 03/07/18 16:39 RBC 2.21 M/mm3 (4.7-6.0) L 03/07/18 16:39 Hgb 6.8 gm/dL (13.5-18.0) L* 03/07/18 16:39 Hct 21.5 % (42.0-52.0) L* 03/07/18 16:39 MCV 97.3 fl (78-100) 03/07/18 16:39 MCH 30.8 pg (27-31) 03/07/18 16:39 MCHC 31.6 g/dl (32-36) L 03/07/18 16:39 RDW 14.6 % (11.5-14.0) H 03/07/18 16:39 Plt Count 302 K/mm3 (150-450) 03/07/18 16:39 MPV 9.4 fl (8-11.3) 03/07/18 16:39 Immature Gran % (Auto) 1.80 % (0.001-0.429) H 03/07/18 16:39 Immature Gran # (Auto) 0.16 K/mm3 (0.000-0.0310) H 03/07/18 16:39 Neutrophils % 70.9 % (42-75.0) 03/07/18 16:39 Lymphocytes % 15.8 % (20-51) L 03/07/18 16:39 Monocytes % 9.6 % (0.0-9) H 03/07/18 16:39 Eosinophils % 1.3 % (0.0-3.0) 03/07/18 16:39 Basophils % 0.6 % (0.0-1.0) 03/07/18 16:39 Nucleated RBC % 0.1 k/mm3 (0-1) 03/07/18 16:39 Neutrophils # 6.2 K/mm3 (1.3-6.0) H 03/07/18 16:39 Lymphocytes # 1.39 k/mm3 (1.5-3.5) L 03/07/18 16:39 Monocytes # 0.8 k/mm3 (0.0-1.0) 03/07/18 16:39 Eosinophils # 0.1 k/mm3 (0.0-0.7) 03/07/18 16:39 Absolute Basophils 0.1 k/mm3 (0.0-0.1) 03/07/18 16:39 PT 10.5 Seconds (9.0-11.0) 03/07/18 Unknown INR (Anticoag Therapy) 1.05 INR (0.90-1.10) 03/07/18 Unknown PTT (Benigno) 21.2 Seconds (24-32) L 03/07/18 Unknown Sodium 136 mmol/L (132-142) 03/07/18 16:39 Plasma Sodium 136 mmol/L (130-142) 03/07/18 16:39 Potassium 3.7 mmol/L (3.4-4.6) 03/07/18 16:39 Chloride 98 mmol/L (97-106) 03/07/18 16:39 Carbon Dioxide 30.6 mmol/L (24-32.6) 03/07/18 16:39 Anion Gap 11.1 mmol/L (6.8-13.8) 03/07/18 16:39 BUN 15 mg/dL (6-23) 03/07/18 16:39 Creatinine 1.36 mg/dL (0.4-1.4) 03/07/18 16:39 Est GFR (Non-Af Amer) 54 mL/min (60-130) L 03/07/18 16:39 BUN/Creatinine Ratio 11.0 (9.0-21.6) 03/07/18 16:39 Random Glucose 117 mg/dL (70-110) H 03/07/18 16:39 Calcium 8.5 mg/dL (7.9-10.9) 03/07/18 16:39 Calcium Adj for Albumin 8.7 mg/dL (8.4-10.2) 03/07/18 16:39 Total Bilirubin 0.5 mg/dL (0.0-1.1) 03/07/18 16:39 AST 18 U/L (0-48) 03/07/18 16:39 ALT 14 U/L (19-67) L 03/07/18 16:39 Alkaline Phosphatase 51 U/L (50-170) 03/07/18 16:39 Total Protein 6.8 gm/dL (6.2-8.2) 03/07/18 16:39 Albumin 3.3 gm/dl (3.4-5.0) L 03/07/18 16:39 Assessment/Plan - Narrative Narrative: 1. Observation and monitoring for recurrent epistaxis and symptoms of his anemia 2. Transfuse 2 units of packed red blood cells tonight 3. 20 units of Lasix after the first unit of blood is administered 4. Regular diet 5. I'll hold his aspirin until we know the bleeding is going to stay stopped. - Assessment/Plan (1) Anterior epistaxis Problem: Acute (2) Right-sided nosebleed Problem: Acute (3) Acute blood loss anemia Problem: Acute (4) Edema Problem: Chronic (5) Neuropathy Problem: Chronic
[2018-03-07] MEDS ORDERED: ALBUTEROL SULFATE 2.5 MG/0.5 ML VIAL.NEB IH SCH (21:00)
[2018-03-07] MEDS ORDERED: FUROSEMIDE 10 MG/ML VIAL ONE (21:13)
[2018-03-07] MEDS: SPIRONOLACTONE 25 MG TABLET PO SCH (21:22)
[2018-03-07] MEDS: GABAPENTIN 600 MG TABLET PO SCH (21:22)
[2018-03-07] MEDS: CLOTRIMAZOLE 30 APPL TUBE TP SCH (21:24)
[2018-03-08] MEDS: HYDROcodone/ACETAMINOPHEN 1 EACH TABLET PO PRN ×4 (00:44→19:37)
[2018-03-08] MEDS ORDERED: ALBUTEROL SULFATE 2.5 MG/0.5 ML VIAL.NEB IH ONE (05:56)
[2018-03-08] MEDS: ALBUTEROL SULFATE 2.5 MG/0.5 ML VIAL.NEB IH SCH ×4 (06:21→18:18)
[2018-03-08 06:41] LABS: Hematocrit 24.6 % (42.0-52.0); Hemoglobin 8.2 gm/dL (13.5-18.0); Mean Cell Volume 95.3 fl (78-100); Mean Corpuscular Hemoglobin 31.8 pg (27-31); Mean Corpuscular Hgb Conc 33.3 g/dl (32-36); Mean Platelet Volume 8.7 fl (8-11.3); NRBC# 0.1 k/mm3 (0-1); Neutrophil # 5.5 K/mm3 (1.3-6.0); Neutrophil % 62.2 % (42-75.0); Platelet Count 258 K/mm3 (150-450); Red Blood Count 2.58 M/mm3 (4.7-6.0); Red Cell Distribution Width 14.3 % (11.5-14.0); White Blood Count 8.9 K/mm3 (4.0-10.5)
[2018-03-08 06:55] LABS: Anion Gap 8.2 mmol/L (6.8-13.8); BUN/Creatinine Ratio 9.9 (9.0-21.6); Calcium * 8.1 mg/dL (7.9-10.9); Carbon Dioxide 32.5 mmol/L (24-32.6); Estimated Creat Clear 40.1; Potassium 3.7 mmol/L (3.4-4.6)
[2018-03-08 07:10] LABS: Hemoglobin A1C 5.2 % (4.00-6.0)
[2018-03-08] MEDS: LISINOPRIL 10 MG TABLET PO SCH (08:16)
[2018-03-08] MEDS: SPIRONOLACTONE 25 MG TABLET PO SCH ×2 (08:16→21:59)
[2018-03-08] MEDS: CLOTRIMAZOLE 30 APPL TUBE TP SCH ×2 (08:17→22:00)
[2018-03-08] MEDS ORDERED: MOMETASONE FUROATE TP SCH ×2 (09:00)
[2018-03-08 17:12] LABS: Hematocrit 24.7 % (42.0-52.0); Mean Cell Volume 96.9 fl (78-100); Mean Corpuscular Hemoglobin 31.4 pg (27-31); Mean Corpuscular Hgb Conc 32.4 g/dl (32-36); Mean Platelet Volume 8.7 fl (8-11.3); NRBC# 0.2 k/mm3 (0-1); Neutrophil # 6.3 K/mm3 (1.3-6.0); Neutrophil % 64.2 % (42-75.0); Platelet Count 273 K/mm3 (150-450); Red Blood Count 2.55 M/mm3 (4.7-6.0); White Blood Count 9.8 K/mm3 (4.0-10.5)
--- NOTE | 2018-03-08 17:27 | PN ---
Subjective - Date and Time Seen Date: 03/08/18 Time: 17:00 Subjective Narrative: Mr. Zamora has had an uneventful night. He's had a little bit of blood spitting off and on but no aggressive bleeding. On examination this morning there is a pulsating arteriole that has low-back's plexus seen with the otoscope magnification. I looked with this after taking out the nasal trumpet on the right side. His nose was so tender that he could not allow me to cauterize it at the time. His hemoglobin has improved to 8.2 g after receiving 2 units of packed red blood cells. This is up from 6.8 g last evening. I cauterized the arteriole and the right [place] plexus this evening at about 1630. He then started sneezing and started bleeding again. Reinspection of the [place] plexus however does not show any active bleeding from that location and the bleeding is all posterior going down his throat which she is spitting out. I placed a cotton pledgets Under the frenulum of the upper lip and place pressure and put an ice bag to the back of his neck. This has slowed the bleeding down considerably but he still having some oozing and spitting. I'll talk to him about the need to replace the troponins and he doesn't want to do so but I don't think there is any other option tonight. I will recheck his hemoglobin and hematocrit this evening and again tomorrow morning. I'll have 2 units of packed red blood cells typed and held but not cross maxed or transfused until further ordered. I realize he is an observation stay patient but with his hemoglobin is low as it is him actively bleeding I cannot send him home. Objective - Review of Systems Generalized/Overall Review: Reports: Weakness EENTM: Reports: Other - Continued epistaxis Respiratory: Reports: No Symptoms Reported Cardiac: Reports: No Symptoms Reported Abdominal: Reports: No Symptoms Reported Genitourinary Symptoms: Reports: No Symptoms Reported Musculoskeletal Complaints: Reports: No Symptoms Reported Neurological: Reports: No Symptoms Reported Skin: Reports: No Symptoms Reported Endocrine: Reports: No Symptoms Reported Misc: All systems neg except as marked - Vitals Vitals: Last Vital Signs Temp 36.7 C 03/08/18 14:43 Pulse 75 03/08/18 14:43 Resp 20 03/08/18 14:43 BP 128/57 03/08/18 14:43 Pulse Ox 98 03/08/18 14:43 - Abnormal Lab Findings Abnormal Lab Findings: Abnormal Lab Results 03/07/18 03/07/18 03/07/18 Range/Units 16:39 16:39 16:39 RBC 2.21 L (4.7-6.0) M/mm3 Hgb 6.8 L* (13.5-18.0) gm/dL Hct 21.5 L* (42.0-52.0) % MCH (27-31) pg MCHC 31.6 L (32-36) g/dl RDW 14.6 H (11.5-14.0) % Immature Gran % (Auto) 1.80 H (0.001-0.429) % Immature Gran # (Auto) 0.16 H (0.000-0.0310) K/mm3 Lymphocytes % 15.8 L (20-51) % Monocytes % 9.6 H (0.0-9) % Neutrophils # 6.2 H (1.3-6.0) K/mm3 Lymphocytes # 1.39 L (1.5-3.5) k/mm3 PTT ([place]) (24-32) Seconds Creatinine (0.4-1.4) mg/dL Est GFR (Non-Af Amer) 54 L (60-130) mL/min Random Glucose 117 H (70-110) mg/dL ALT 14 L (19-67) U/L Albumin 3.3 L (3.4-5.0) gm/dl Crossmatch See Detail 03/07/18 03/08/18 03/08/18 Range/Units Unknown 06:30 06:30 RBC 2.58 L (4.7-6.0) M/mm3 Hgb 8.2 L (13.5-18.0) gm/dL Hct 24.6 L (42.0-52.0) % MCH 31.8 H (27-31) pg MCHC (32-36) g/dl RDW 14.3 H (11.5-14.0) % Immature Gran % (Auto) 1.10 H (0.001-0.429) % Immature Gran # (Auto) 0.10 H (0.000-0.0310) K/mm3 Lymphocytes % (20-51) % Monocytes % 9.7 H (0.0-9) % Neutrophils # (1.3-6.0) K/mm3 Lymphocytes # (1.5-3.5) k/mm3 PTT ([place]) 21.2 L (24-32) Seconds Creatinine 1.42 H (0.4-1.4) mg/dL Est GFR (Non-Af Amer) 51 L (60-130) mL/min Random Glucose 111 H (70-110) mg/dL ALT (19-67) U/L Albumin (3.4-5.0) gm/dl Crossmatch - Exam Constitutional: Present: Alert, Oriented x3, Cooperative, Well developed, Well nourished, Mild distress ENT Exam: Present: nasal drainage - From epistaxis. He is actually spitting blood out and coughing it out of his throat which is due to his posterior bleed. Neck: Present: non-tender, full range of motion, supple, normal inspection, trachea midline, limited range of motion Breasts: Present: Exam deferred Respiratory: Present: chest non-tender, lungs clear Cardiovascular/Chest: Present: normal peripheral pulses, regular rate, rhythm, no chest tenderness, no edema, no gallop, no JVD, no murmur, no rub Abdomen: Present: Normal bowel sounds, soft, nontender, nondistended /Rectal: Present: Exam deferred Extremity: Present: normal range of motion, non-tender, normal inspection, no calf tenderness, lower extremity edema - R>L, pedal edema Skin Exam: Present: pallor Lymphatic: Present: no adenopathy Neurologic: Present: wooden tank erector II-XII nml as tested Appearance: Present: appropriate appearance Eye contact: Present: cooperative, good eye contact Thoughts: Present: normal thought pattern Assessment/Plan Plan Narrative: 1. I cauterized the arteriole that was pulsating at Hesselbach's plexus on the right side of the septum and no bleeding occurred there. 2. Type and hold 2 units of packed red blood cells but do not administer until ordered 3. Recheck hemoglobin and hematocrit at 5:00 and again tomorrow morning. 4. Replace nasal trumpet if bleeding persists. - Problems/Diagnosis (1) Anterior epistaxis Problem: Acute (2) Right-sided nosebleed Problem: Acute (3) Acute blood loss anemia Problem: Acute (4) Edema Problem: Chronic Qualifiers: Edema type: localized Qualified Code(s): R60.0 - Localized edema (5) Neuropathy Problem: Chronic
[2018-03-08] MEDS: GABAPENTIN 600 MG TABLET PO SCH (21:59)
[2018-03-09] MEDS: HYDROcodone/ACETAMINOPHEN 1 EACH TABLET PO PRN (00:15)
[2018-03-09 06:40] LABS: Hematocrit 25.3 % (42.0-52.0); Hemoglobin 8.3 gm/dL (13.5-18.0); Mean Cell Volume 96.9 fl (78-100); Mean Corpuscular Hemoglobin 31.8 pg (27-31); Mean Corpuscular Hgb Conc 32.8 g/dl (32-36); Mean Platelet Volume 9.6 fl (8-11.3); NRBC# 0.1 k/mm3 (0-1); Neutrophil # 5.3 K/mm3 (1.3-6.0); Neutrophil % 59.5 % (42-75.0); Platelet Count 310 K/mm3 (150-450); Red Blood Count 2.61 M/mm3 (4.7-6.0); Red Cell Distribution Width 15.4 % (11.5-14.0); White Blood Count 8.9 K/mm3 (4.0-10.5)
[2018-03-09] MEDS: LISINOPRIL 10 MG TABLET PO SCH (08:29)
[2018-03-09] MEDS: SPIRONOLACTONE 25 MG TABLET PO SCH (08:29)
[2018-03-09] MEDS: ALBUTEROL SULFATE 2.5 MG/0.5 ML VIAL.NEB IH SCH (08:30)
[2018-03-09] MEDS: CLOTRIMAZOLE 30 APPL TUBE TP SCH (08:31)
--- NOTE | 2018-03-09 09:08 | DS ---
(1) Anterior epistaxis Problem: Resolved (2) Right-sided nosebleed Problem: Resolved (3) Acute blood loss anemia Problem: Acute (4) Edema Problem: Chronic Qualifiers: Edema type: localized Qualified Code(s): R60.0 - Localized edema (5) Neuropathy Problem: Chronic Description of Stay: Noah Doyle is a 74 yo wh male who was admitted to inpatient observation with anemia from acute blood loss from epistaxis. Admitting hb was 6.8 grams. He was transfused 2 units of PRBs and and the Hb increaased to 8.2 grams. I had planned to send him home yesterday afternoon and started having nose bleeding again. I examined the anterior nose and found a pulsating arteriole acyl box plexus on the right side. He had initial troponin for 48 hours and so I removed that. I then cauterized the arterial. He then started sneezing and started having rather profuse blood spitting going down the back of his throat and expectorating it. I put pressure on the frenulum and ice pack to the back of his neck and the bleeding did stop. Repeat hemoglobin last night was 3.1 g. Because he continued to bleed last night he couldn't send him home and so he is still here today. I wrote an order to admit to regular inpatient stay since he could not go home yesterday. He has not had any significant bleeding through the night. And his hemoglobin is 8.3 g this morning in spite of the bleed that he had yesterday. Otherwise, he has been medically stable and there have been no other complications. Procedures Performed: none Results and Findings: Lab Pending Results 03/07/18 16:39: WBC 8.8, RBC 2.21 L, Hgb 6.8 L*, Hct 21.5 L*, MCV 97.3, MCH 30.8, MCHC 31.6 L, RDW 14.6 H, Plt Count 302, MPV 9.4, Immature Gran % (Auto) 1.80 H, Immature Gran # (Auto) 0.16 H, Neutrophils % 70.9, Lymphocytes % 15.8 L, Monocytes % 9.6 H, Eosinophils % 1.3, Basophils % 0.6, Nucleated RBC % 0.1, Neutrophils # 6.2 H, Lymphocytes # 1.39 L, Monocytes # 0.8, Eosinophils # 0.1, Absolute Basophils 0.1 03/07/18 16:39: Sodium 136, Plasma Sodium 136, Potassium 3.7, Chloride 98, Carbon Dioxide 30.6, Anion Gap 11.1, BUN 15, Creatinine 1.36, Est GFR (Non-Af Amer) 54 L, BUN/Creatinine Ratio 11.0, Random Glucose 117 H, Calcium 8.5, Calcium Adj for Albumin 8.7, Total Bilirubin 0.5, AST 18, ALT 14 L, Alkaline Phosphatase 51, Total Protein 6.8, Albumin 3.3 L 03/07/18 16:39: Blood Type O Positive, Antibody Screen Negative, Crossmatch See Detail 03/07/18 : PT 10.5, INR (Anticoag Therapy) 1.05, PTT ([place]) 21.2 L 03/08/18 06:30: Sodium 136, Plasma Sodium 136, Potassium 3.7, Chloride 99, Carbon Dioxide 32.5, Anion Gap 8.2, BUN 14, Creatinine 1.42 H, Est GFR (Non-Af Amer) 51 L, BUN/Creatinine Ratio 9.9, Random Glucose 111 H, Calcium 8.1 03/08/18 06:30: WBC 8.9, RBC 2.58 L, Hgb 8.2 L, Hct 24.6 L, MCV 95.3, MCH 31.8 H, MCHC 33.3, RDW 14.3 H, Plt Count 258, MPV 8.7, Immature Gran % (Auto) 1.10 H, Immature Gran # (Auto) 0.10 H, Neutrophils % 62.2, Lymphocytes % 24.3, Monocytes % 9.7 H, Eosinophils % 2.0, Basophils % 0.7, Nucleated RBC % 0.1, Neutrophils # 5.5, Lymphocytes # 2.16, Monocytes # 0.9, Eosinophils # 0.2, Absolute Basophils 0.1 03/08/18 06:30: Mean Blood Glucose 87, Hemoglobin A1c 5.2 03/08/18 17:05: WBC 9.8, RBC 2.55 L, Hgb 8.0 L, Hct 24.7 L, MCV 96.9, MCH 31.4 H, MCHC 32.4, RDW 15.0 H, Plt Count 273, MPV 8.7, Immature Gran % (Auto) 1.80 H, Immature Gran # (Auto) 0.18 H, Neutrophils % 64.2, Lymphocytes % 21.5, Monocytes % 10.0 H, Eosinophils % 1.9, Basophils % 0.6, Nucleated RBC % 0.2, Neutrophils # 6.3 H, Lymphocytes # 2.11, Monocytes # 1.0, Eosinophils # 0.2, Absolute Basophils 0.1 03/09/18 06:00: WBC 8.9, RBC 2.61 L, Hgb 8.3 L, Hct 25.3 L, MCV 96.9, MCH 31.8 H, MCHC 32.8, RDW 15.4 H, Plt Count 310, MPV 9.6, Immature Gran % (Auto) 1.80 H, Immature Gran # (Auto) 0.16 H, Neutrophils % 59.5, Lymphocytes % 26.5, Monocytes % 8.0, Eosinophils % 3.6 H, Basophils % 0.6, Nucleated RBC % 0.1, Neutrophils # 5.3, Lymphocytes # 2.35, Monocytes # 0.7, Eosinophils # 0.3, Absolute Basophils 0.1 Discharge Location: Home Disposition: Home self-care Condition: Stable Discharge Activity: Activity as tolerated Discharge Diet: General/regular food Referrals: Sheng Romero MD [Primary Care Provider] - Additional Patient Instructions (free text): 1. Set referral to ear nose and throat as soon as possible Dr. Garner 03/12 at 11:00am in [facility] office. 2. He should sleep with his head elevated 30-45. 3. Scheduled to see Dr. Romero. In the next week or 2. with Dr. Romero 03/18 at 10:00am 4. Suggest adding ferrous sulfate 325 mg 1 by mouth daily 5. Repeat CBC in 2 weeks Prescriptions (Any new or edited meds): Clotrimazole [Lotrimin Cream] 1 appl TOPICAL BID #80 tube Complete Home Medications List: Complete Home Medication List: HYDROcodone/ACETAMINOPHEN [[place] 5-325] 1 ea PO Q4H PRN #30 tab 08/29/17 Spironolactone [Aldactone] 25 mg PO BID #60 tab 08/29/17 albuterol sulfate 2.5 mg/3 mL (0.083 %) solution for nebulization 2.5 mg IH QID PRN 09/14/17 gabapentin 600 mg tablet 600 mg PO HS #30 tab 12/08/17 Clotrimazole [Lotrimin Cream] 1 appl TOPICAL BID #80 tube 03/09/18 Lisinopril [Zestril] 10 mg PO DAILY tab 03/09/18 Amb Orders for Discharge: CBC Time Frame: 2 Weeks, Location: Laboratory
[2018-03-09 09:51] VITALS: BP 129/70
== END 2018-03-09 10:08 | disposition home or self-care (01) | DRG 812 ==
LOC: MS 16:22 → ER 16:22 → MS 18:15
PROVIDERS: ADMIT Family Medicine; ATTEND Family Medicine
DX: F17.200 Nicotine dependence, unspecified, uncomplicated; Z79.82 Long term (current) use of aspirin; I50.9 Heart failure, unspecified; M19.90 Unspecified osteoarthritis, unspecified site; I87.302 Chronic venous hypertension (idiopathic) without complications of left lower extremity; Z82.49 Family history of ischemic heart disease and other diseases of the circulatory system; I87.8 Other specified disorders of veins; D62 Acute posthemorrhagic anemia; Z88.6 Allergy status to analgesic agent; I87.2 Venous insufficiency (chronic) (peripheral); E11.40 Type 2 diabetes mellitus with diabetic neuropathy, unspecified; R60.0 Localized edema; J44.9 Chronic obstructive pulmonary disease, unspecified; E66.9 Obesity, unspecified; R04.0 Epistaxis; Z68.41 Body mass index [BMI] 40.0-44.9, adult
CPT/HCPCS: 30901; 36415; 80048; 80053; 83036; 85025; 85610; 85730; 86850; 86900; 87081; 94640; 94664; 96374; 99282; 99284; P9016

== ENCOUNTER 2020-03-01 22:46 | Observation (INO) ==
--- NOTE | 2020-03-01 23:11 | ERNOTE ---
Integumentary HPI - Narrative Date of Service: 03/01/20 - Leg sores - General Presenting Symptoms: other - Tingling stinging leg pain under dressings. Time Seen by Provider: 03/01/20 22:50 Source: patient, EMS, RN notes reviewed, old records Exam Limitations: other - Very poor historian, reports he was at wound clinic Friday but last recorded visit is February 08. This would be much more compatible with the condition of his legs a month later. - Immun/Allergies/Home Medications Immunizations: IMMUNIZATION HX Immunizations Up to Date Yes History of Influenza Vaccine No Hx Pneumococcal Vaccination No Allergies/Adverse Reactions: Allergies Allergy/AdvReac Type Severity Reaction Status Date / Time ibuprofen Allergy Severe Anaphylaxis Verified 03/01/20 23:54 Home Medications: HOME MEDICATIONS albuterol sulfate 2.5 mg IH QID PRN #180 ml 12/02/18 [Last Taken Unknown] Mometasone Furoate 1 appl TOPICAL DAILY #45 cream..g. 04/12/19 [Last Taken Unknown] albuterol sulfate 90 mcg/actuation aerosol inhaler 2 inh IH Q4H PRN #6.7 g 12/02/19 [Last Taken Unknown] cetirizine 10 mg tablet 10 mg PO HS #90 tab 12/02/19 [Last Taken Unknown] furosemide 20 mg tablet 20 mg PO DAILY #90 tab 12/02/19 [Last Taken Unknown] gabapentin 300 mg capsule 300 mg PO HS #90 cap 12/02/19 [Last Taken Unknown] gabapentin 600 mg tablet 600 mg PO BID #180 tab 12/02/19 [Last Taken Unknown] lisinopril 5 mg tablet 5 mg PO DAILY #90 tab 12/02/19 [Last Taken Unknown] spironolactone 50 mg tablet 50 mg PO BID #60 tab 12/02/19 [Last Taken Unknown] Levofloxacin [Levaquin] 500 mg PO DAILY #10 tab 02/14/20 [Last Taken Unknown] - Pain Pain Score: 3 - History of Present Illness Narrative: Mr. Doyle has been seeing the local [employer] [employer] practitioner at [facility] Wound clinic, wrapping lower legs for wounds and ulcers. Bk arrives by EMS because of increasing discomfort in feet and legs. Admits he sometimes misses Wound clinic appointments due to lack of transportation. Does not know his medical conditions or medications. Date (Duration): 03/01/20 Time (Timing): 22:45 Location: Reports: lower extremity - Both legs in padded wraps, toes enclosed on R open and very swollen on L. Quality: Reports: itching, burning Severity: severe Exposure: Reports: other - Leg chronic condition. Modifying Factors - (Improves): Reports: nothing Modifying Factors - (Worsens): Reports: nothing Associated Symptoms: Denies: rash, hives, headache, sore throat, malaise Prior Treatment: Reports: recently seen - States was last at wound clinic FridayFeb 27. Review of Systems - Review of Systems Constitutional: Present: no symptoms reported, See HPI, malaise EYE: Present: no symptoms reported Respiratory: Present: no symptoms reported Cardiology: Present: no symptoms reported Gastrointestinal/Abdominal: Present: no symptoms reported Genitourinary: Present: other - incontinence wears Depends, sometimes leaks down his legs. Musculoskeletal: Present: no symptoms reported Skin: Present: See HPI Neurological: Present: no symptoms reported Endocrine: Present: no symptoms reported, See HPI Psych: Present: no symptoms reported Medical History (Last Reviewed 03/01/20 @ 23:24 by Edmundo Villar MD) Umbilical hernia without obstruction and without gangrene (Chronic) Essential hypertension (Chronic) Allergic rhinitis Onset Date: ~07/22/15 Cellulitis 11/2014, 08/29/17 Diabetes Onset Date: ~03/25/15 Localized edema Onset Date: ~03/02/15 Stasis dermatitis of left lower extremity due to peripheral venous hypertension Onset Date: ~08/03/15 Venous stasis dermatitis of both lower extremities Onset Date: ~03/25/15 Arthritis Asthma COPD (chronic obstructive pulmonary disease) Back pain Congestive heart failure Onset Date: ~10/29/15 Surgical History: Surgical History (Last Reviewed 03/01/20 @ 23:24 by Edmundo Villar MD) History of abdominal surgery Onset Date: ~1958 exploratory History of cataract surgery Onset Date: 05/03/19 11/18/06 right. 05/03/19-left Hx of appendectomy Onset Date: ~1958 Family History: Family History (Last Reviewed 03/01/20 @ 23:24 by Edmundo Villar MD) Father , age 50's-liver ca Liver cancer Mother , age 70's-brain tumor Brain tumor Sister , 6 sisters (2 sisters living) Unknown whether patient has any health problems Aunt Cancer paternal-unknown type Brother , 4 brothers (4 brothers living) Unknown whether patient has any health problems Uncle Cancer paternal-unknown type Social History: (Last Reviewed 03/01/20 @ 23:24 by Edmundo Villar MD) Social History: Marital status: Single household members: none number of children: 2 current occupational status: retired Service: No Tobacco: Smoking Status: Current every day smoker tobacco type: cigarettes Smoking cigarettes per day: 7 Alcohol: alcohol intake: former Substance Use: substance use type: does not use Dietary Habits: caffeine: Yes Type: carbonated beverages Personal Safety: victim of physical abuse: No victim of emotional abuse: No Physical Exam - Physical Exam General Appearance: Present: alert, mild distress - Complaining of cold and sensitive feet. Fetid odor immediately on being near him. Head Exam: Present: normal inspection Eye Exam: Normal inspection: bilateral Ears, Nose, Throat: Present: normal ENT inspection Neck: Present: normal inspection Respiratory: Present: no respiratory distress, normal breath sounds Cardiovascular/Chest: Present: regular rate, rhythm Peripheral Pulses: N=norm/S=strong/W=weak/B=bound/A=absent: Dorsalis-pedis (R): Absent, Dorsalis-pedis (L): Absent Gastrointestinal/Abdominal: Present: soft, hernia - Large reducible umbilical hernia. Back Exam: Present: no CVA tenderness Extremity Exam: Present: other - Massive edema of L toes extending out of his wraps. The wraps are filthy and malodorous. As they are cut off, fetid smelling dressings and hyperemic skin noted inside the outer dressings. Would cultures taken topically bilaterally. Neurological Exam: Present: alert, oriented - But his fund of information is terrible. No idea his medical history until I asked based on stored records, no idea of his meds. Says home health quit coming after his discharge from [facility] in December. "Maybe it was the end of January last time I was at wound clinic!" Skin Exam: Present: skin rash - Other areas of skin break down on legs. , other Progress - Results and Orders Patient's Lab Results:: I have reviewed the patient's lab results. Results and Orders: Laboratory Tests 03/01/20 23:25 WBC 7.8 RBC 4.01 L Hgb 11.9 L Hct 38.0 L Neutrophils % 65.5 Lymphocytes % 15.6 L Monocytes % 12.9 H Eosinophils % 4.0 H Basophils % 1.2 H Laboratory Tests 03/01/20 03/01/20 23:20 23:25 Plasma Sodium 136 Potassium 4.0 Chloride 99 Carbon Dioxide 27.4 Anion Gap 13.6 BUN 22 D Creatinine 1.70 H D Est GFR (Non-Af Amer) 41 L D BUN/Creatinine Ratio 12.9 Lactic Acid, Venous 1.9 Total Bilirubin 0.6 AST 47 ALT 30 Alkaline Phosphatase 72 - Vital Signs Patient's Vital Signs:: I have reviewed the patient's vital signs. - BP better after new cuff. Fluid bolus and antibiotics started promptly after cultures obtained. Vital Signs: Selected Entries 03/01/20 22:47 03/01/20 23:24 03/01/20 23:37 Blood Pressure 67/50 L 135/49 139/67 03/01/20 23:44 03/01/20 23:52 03/02/20 00:07 Blood Pressure 129/58 111/65 118/57 03/02/20 00:21 03/02/20 01:23 03/02/20 01:24 Blood Pressure 129/49 122/59 112/72 Selected Entries 03/01/20 22:47 Blood Pressure 67/50 L - EKG EKG #1 EKG: NSR - Progress/Reassessment Progress:: Improved - Transfer of Care Physician Sign Out: Julio Wyatt - Dr. Wyatt accepts pt for admission. Receiving Physician: Julio Wyatt Expected Disposition: Admit Plan - Plan Plan: Labs do not show the septic elevated WBC I expected and his BS is 101 not off the chart. Discussed with Dr. Wyatt who is construction safety consultant for admissions, will admit acute with Dr. Juan his doctor assuming care in the morning. Departure Clinical Impression: Ulcers of both lower extremities, limited to breakdown of skin, Failure of outpatient treatment, Stasis dermatitis of both legs, Venous insufficiency (chronic) (peripheral), Lower extremity pain, diffuse, Bacterial skin infection of leg - Departure Disposition: Still a patient Condition: Serious
[2020-03-01] MEDS ORDERED: fentaNYL CITRATE/PF 50 MCG/ML AMPUL IV ONE (23:13)
[2020-03-01] MEDS ORDERED: NORMAL SALINE 500 ML IV ONE (23:22)
[2020-03-01 23:27] LABS: Hemoglobin 11.9 gm/dL (13.5-18.0); Mean Cell Volume 94.8 fl (78-100); Mean Corpuscular Hemoglobin 29.7 pg (27-31); Mean Corpuscular Hgb Conc 31.3 g/dl (32-36); Mean Platelet Volume 8.7 fl (8-11.3); Neutrophil # 5.1 K/mm3 (1.3-6.0); Neutrophil % 65.5 % (42-75.0); Platelet Count 390 K/mm3 (150-450); Red Blood Count 4.01 M/mm3 (4.7-6.0); Red Cell Distribution Width 14.5 % (11.5-14.0); White Blood Count 7.8 K/mm3 (4.0-10.5)
[2020-03-01] MEDS ORDERED: VANCOMYCIN/WATER FOR INJ (PEG) 1 GM/200 ML BAG IV ONE (23:33)
[2020-03-01] MEDS ORDERED: PIPERACILLIN SODIUM/TAZOBACTAM 3.375 GM in DEXTROSE 5 % IN WATER 100 ML IV ONE ×2 (23:36)
[2020-03-01 23:42] LABS: Albumin * 2.9 gm/dl (3.4-5.0); Anion Gap 13.6 mmol/L (6.8-13.8); BUN/Creatinine Ratio 12.9 (9.0-21.6); Bilirubin, Total 0.6 mg/dL (0.0-1.1); Ca. Corrected For Albumin 9.9 mg/dL (8.4-10.2); Calcium * 9.3 mg/dL (7.9-10.9); Carbon Dioxide 27.4 mmol/L (24-32.6); Total Protein 8.4 gm/dL (6.2-8.2)
[2020-03-02] MEDS ORDERED: ACETAMINOPHEN 325 MG TABLET PO PRN (00:07)
[2020-03-02] MEDS ORDERED: ALPRAZolam 0.25 MG TABLET PO PRN (00:10)
[2020-03-02] MEDS: HYDROmorphone HCL 1 MG/ML DISP.SYRIN IV PRN ×2 (01:17→07:59)
[2020-03-02 01:48] LABS: Urine Bilirubin Negative (NEGATIVE); Urine Ketone Negative (NEGATIVE); Urine Nitrite Negative (NEGATIVE); Urine Protein 15 mg/dL (NEGATIVE); Urine Specific Gravity 1.025 SP.GR. (1.005-1.030); Urine Urobilinogen Normal (NORMAL); Urine pH 5.5 pH (5.0-7.0)
[2020-03-02 01:57] LABS: Urine Appearance Clear (CLEAR); Urine Bacteria None Seen; Urine Blood 5 /ul (NEGATIVE); Urine Color Yellow; Urine RBC 0-5 /hpf (0-5); Urine WBC None Seen /hpf (0-5)
[2020-03-02] MEDS ORDERED: ACETAMINOPHEN 500 MG TABLET PO PRN (10:41)
[2020-03-02] MEDS ORDERED: HYDROmorphone HCL 1 MG/ML DISP.SYRIN IV PRN (10:43)
[2020-03-02] MEDS ORDERED: ALBUTEROL SULFATE 2.5 MG/0.5 ML VIAL.NEB IH PRN ×2 (10:44)
[2020-03-02] MEDS: PIPERACILLIN SODIUM/TAZOBACTAM 3.375 GM in DEXTROSE 5 % IN WATER 100 ML IV SCH ×4 (11:26→19:27)
[2020-03-02] MEDS: SPIRONOLACTONE 25 MG TABLET PO SCH ×2 (11:26→21:48)
[2020-03-02] MEDS: FUROSEMIDE 20 MG TABLET PO SCH (11:27)
[2020-03-02] MEDS: MOMETASONE FUROATE TP SCH (11:27)
[2020-03-02] MEDS: LISINOPRIL 5 MG TABLET PO SCH (11:27)
[2020-03-02] MEDS: GABAPENTIN 600 MG TABLET PO SCH ×2 (11:27→21:48)
[2020-03-02] MEDS ORDERED: NORMAL SALINE 1,000 ML IV ONE (13:21)
--- NOTE | 2020-03-02 13:21 | HP ---
Chief Complaint - Chief Complaint Date of Service: 03/02/20 Time of Service: 13:06 Chief Complaint: I have pain and burning in both my lower extremities History of Present Illness: 79-year-old male with past medical history of type 2 diabetes, COPD, hypertension, morbid obesity, ventral hernia, and venous stasis ulcers was evaluated in our ER for increasing pain, swelling, and itching in both his lower extremities over the past several days. Patient has a long history of venous stasis ulcers for which he is being treated for at our wound clinic and was last seen last week when he was diagnosed with cellulitis of his lower extremities. The patient was prescribed oral antibiotics which he has been taking but says his symptoms worsened. He denies any fever or chills but complains of constant pain and extreme itching in his lower extremities. On physical exam the patient was noted to have severely infected skin on his legs and feet. The patient regularly goes to the wound clinic for dressing changes and was instructed to do his changes at home but due to his significant obesity and poor social support he has not been doing his dressing changes which most likely contributed to his infection. Patient reports has been difficult to keep his appointments with the wound team and PCP due to lack of transportation and lack of support from his family members, so he did not make his last appointment to have a dressing changed. Medical History (Last Reviewed 03/02/20 @ 02:32 by Trinity Zhu RN) Umbilical hernia without obstruction and without gangrene (Chronic) Essential hypertension (Chronic) Allergic rhinitis Onset Date: ~07/22/15 Cellulitis 11/2014, 08/29/17 Diabetes Onset Date: ~03/25/15 Localized edema Onset Date: ~03/02/15 Stasis dermatitis of left lower extremity due to peripheral venous hypertension Onset Date: ~08/03/15 Venous stasis dermatitis of both lower extremities Onset Date: ~03/25/15 Arthritis Asthma COPD (chronic obstructive pulmonary disease) Back pain Congestive heart failure Onset Date: ~10/29/15 Surgical History: Surgical History (Last Reviewed 03/02/20 @ 02:32 by Trinity Zhu RN) History of abdominal surgery Onset Date: ~1958 exploratory History of cataract surgery Onset Date: 05/03/19 9//07 right. 05/03/19-left Hx of appendectomy Onset Date: ~1958 Family History: Family History (Last Reviewed 03/02/20 @ 02:32 by Trinity Zhu RN) Father , age 50's-liver ca Liver cancer Mother , age 70's-brain tumor Brain tumor Sister , 6 sisters (2 sisters living) Unknown whether patient has any health problems Aunt Cancer paternal-unknown type Brother , 4 brothers (4 brothers living) Unknown whether patient has any health problems Uncle Cancer paternal-unknown type Social History: (Last Reviewed 03/02/20 @ 02:32 by Trinity Zhu RN) Social History: Marital status: Single household members: none number of children: 2 current occupational status: retired Service: No Tobacco: Smoking Status: Current every day smoker tobacco type: cigarettes Smoking cigarettes per day: 7 Alcohol: alcohol intake: former Substance Use: substance use type: does not use Dietary Habits: caffeine: Yes Type: carbonated beverages Personal Safety: victim of physical abuse: No victim of emotional abuse: No Peds Patient Hx - Developmental: No Pertinent Hx Peds Patient Hx - Medical: No Pertinent Hx Peds Patient Hx - Cardiac/Respiratory: No Pertinent Hx Peds Patient Hx - Surgical: No Surgical History Patient History - Cancer: No Hx of Cancer Review Of Systems (GEN) - Review of Systems Generalized/Overall Review: Absent: Chills, Fever EENTM: Present: No Symptoms Reported Respiratory: Present: Wheezing Cardiac: Present: No Symptoms Reported Abdominal: Present: No Symptoms Reported Genitourinary: Present: No Symptoms Reported Musculoskeletal: Present: No Symptoms Reported Neurological: Present: No Symptoms Reported Skin: Present: Other - Pain swelling and itching of lower extremities Endocrine: Present: No Symptoms Reported Immunizations: IMMUNIZATION HX Immunizations Up to Date Yes History of Influenza Vaccine More Information Required Hx Pneumococcal Vaccination More Information Required Allergies/Adverse Reactions: Allergies Allergy/AdvReac Type Severity Reaction Status Date / Time ibuprofen Allergy Severe Anaphylaxis Verified 03/01/20 23:54 Home Medications: HOME MEDICATIONS albuterol sulfate 2.5 mg IH QID PRN #180 ml 12/02/18 [Last Taken Unknown] Mometasone Furoate 1 appl TOPICAL DAILY #45 cream..g. 04/12/19 [Last Taken Unknown] albuterol sulfate 90 mcg/actuation aerosol inhaler 2 inh IH Q4H PRN #6.7 g 12/02/19 [Last Taken Unknown] cetirizine 10 mg tablet 10 mg PO HS #90 tab 12/02/19 [Last Taken Unknown] furosemide 20 mg tablet 20 mg PO DAILY #90 tab 12/02/19 [Last Taken Unknown] gabapentin 300 mg capsule 300 mg PO HS #90 cap 12/02/19 [Last Taken Unknown] gabapentin 600 mg tablet 600 mg PO BID #180 tab 12/02/19 [Last Taken Unknown] lisinopril 5 mg tablet 5 mg PO DAILY #90 tab 12/02/19 [Last Taken Unknown] spironolactone 50 mg tablet 50 mg PO BID #60 tab 12/02/19 [Last Taken Unknown] Levofloxacin [Levaquin] 500 mg PO DAILY #10 tab 02/14/20 [Last Taken Unknown] Exam - Exam Vital Signs: Vital Signs - Last Taken Temp 37.0 C 03/02/20 10:58 Pulse 84 03/02/20 11:27 Resp 24 H 03/02/20 10:58 BP 118/52 03/02/20 11:27 Pulse Ox 92 L 03/02/20 07:25 Constitutional: Present: Alert, Oriented x3, Cooperative, No distress, Elderly, Morbidly obese ENT Exam: Present: normal ENT inspection, hard of hearing Eye Exam: bilateral eye: normal inspection, PERRL, EOMI Neck: Present: non-tender, full range of motion, supple, normal inspection, trachea midline Back Exam: Present: normal inspection, no CVA tenderness, no vertebral tenderness Breasts: Present: Exam deferred, Nontender Respiratory: Present: chest non-tender, no respiratory distress, no accessory muscle use, wheezing Cardiovascular/Chest: Present: normal peripheral pulses, regular rate, rhythm, no chest tenderness, no gallop, no JVD, no murmur, no rub, edema Peripheral Pulses: dorsalis-pedis (R): 1+, dorsalis-pedis (L): 1+ Abdomen: Present: obese, hernia - Large umbilical hernia with no signs of obstruction or incarceration /Rectal: Present: Exam deferred Extremity: Present: leg pain, pedal edema Skin Exam: Present: warm/dry, no cyanosis, other - Severe desquamation, erythema, suppuration, and putrid odor of lower extremity. Thick scaling of dorsum of feet and interdigitary spaces. 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 II-XII nml as tested, no motor/sensory deficits, alert, normal mood/affect, oriented x 3 Appearance: Present: appropriate appearance, appropriate insight, neat, no memory impairment Eye contact: Present: cooperative, good eye contact, normal speech Thoughts: Present: normal thought pattern, no apparent hallucination Diagnostic Studies: Abnormal Lab Results 03/01/20 03/01/20 03/02/20 Range/Units 23:25 23:25 01:20 RBC 4.01 L (4.7-6.0) M/mm3 Hgb 11.9 L (13.5-18.0) gm/dL Hct 38.0 L (42.0-52.0) % MCHC 31.3 L (32-36) g/dl RDW 14.5 H (11.5-14.0) % Immature Gran % (Auto) 0.80 H (0.001-0.429) % Immature Gran # (Auto) 0.06 H (0.000-0.0310) K/mm3 Lymphocytes % 15.6 L (20-51) % Monocytes % 12.9 H (0.0-9) % Eosinophils % 4.0 H (0.0-3.0) % Basophils % 1.2 H (0.0-1.0) % Lymphocytes # 1.21 L (1.5-3.5) k/mm3 Creatinine 1.70 H D (0.4-1.4) mg/dL Est GFR (Non-Af Amer) 41 L D (60-130) mL/min Total Protein 8.4 H (6.2-8.2) gm/dL Albumin 2.9 L (3.4-5.0) gm/dl Urine Protein 15 H (NEGATIVE) mg/dL Urine Blood 5 H (NEGATIVE) /ul Laboratory Results WBC 7.8 K/mm3 (4.0-10.5) 03/01/20 23:25 RBC 4.01 M/mm3 (4.7-6.0) L 03/01/20 23:25 Hgb 11.9 gm/dL (13.5-18.0) L 03/01/20 23:25 Hct 38.0 % (42.0-52.0) L 03/01/20 23:25 MCV 94.8 fl (78-100) 03/01/20 23:25 MCH 29.7 pg (27-31) 03/01/20 23:25 MCHC 31.3 g/dl (32-36) L 03/01/20 23:25 RDW 14.5 % (11.5-14.0) H 03/01/20 23:25 Plt Count 390 K/mm3 (150-450) 03/01/20 23:25 MPV 8.7 fl (8-11.3) 03/01/20 23:25 Immature Gran % (Auto) 0.80 % (0.001-0.429) H 03/01/20 23:25 Immature Gran # (Auto) 0.06 K/mm3 (0.000-0.0310) H 03/01/20 23:25 Neutrophils % 65.5 % (42-75.0) 03/01/20 23:25 Lymphocytes % 15.6 % (20-51) L 03/01/20 23:25 Monocytes % 12.9 % (0.0-9) H 03/01/20 23:25 Eosinophils % 4.0 % (0.0-3.0) H 03/01/20 23:25 Basophils % 1.2 % (0.0-1.0) H 03/01/20 23:25 Nucleated RBC % 0.0 k/mm3 (0-1) 03/01/20 23:25 Neutrophils # 5.1 K/mm3 (1.3-6.0) 03/01/20 23:25 Lymphocytes # 1.21 k/mm3 (1.5-3.5) L 03/01/20 23:25 Monocytes # 1.0 k/mm3 (0.0-1.0) 03/01/20 23:25 Eosinophils # 0.3 k/mm3 (0.0-0.7) 03/01/20 23:25 Absolute Basophils 0.1 k/mm3 (0.0-0.1) 03/01/20 23:25 Sodium 136 mmol/L (132-142) 03/01/20 23:25 Plasma Sodium 136 mmol/L (130-142) 03/01/20 23:25 Potassium 4.0 mmol/L (3.4-4.6) 03/01/20 23:25 Chloride 99 mmol/L (97-106) 03/01/20 23:25 Carbon Dioxide 27.4 mmol/L (24-32.6) 03/01/20 23:25 Anion Gap 13.6 mmol/L (6.8-13.8) 03/01/20 23:25 BUN 22 mg/dL (6-23) D 03/01/20 23:25 Creatinine 1.70 mg/dL (0.4-1.4) H D 03/01/20 23:25 Est GFR (Non-Af Amer) 41 mL/min (60-130) L D 03/01/20 23:25 BUN/Creatinine Ratio 12.9 (9.0-21.6) 03/01/20 23:25 Random Glucose 101 mg/dL (70-110) 03/01/20 23:25 Lactic Acid, Venous 1.9 mmol/L (0.4-2.0) 03/01/20 23:20 Calcium 9.3 mg/dL (7.9-10.9) 03/01/20 23:25 Calcium Adj for Albumin 9.9 mg/dL (8.4-10.2) 03/01/20 23:25 Total Bilirubin 0.6 mg/dL (0.0-1.1) 03/01/20 23:25 AST 47 U/L (0-48) 03/01/20 23:25 ALT 30 U/L (19-67) 03/01/20 23:25 Alkaline Phosphatase 72 U/L (50-170) 03/01/20 23:25 Total Protein 8.4 gm/dL (6.2-8.2) H 03/01/20 23:25 Albumin 2.9 gm/dl (3.4-5.0) L 03/01/20 23:25 Urine Color Yellow 03/02/20 01:20 Urine Appearance Clear (CLEAR) 03/02/20 01:20 Urine pH 5.5 pH (5.0-7.0) 03/02/20 01:20 Ur Specific [place] 1.025 SP.GR. (1.005-1.030) 03/02/20 01:20 Urine Protein 15 mg/dL (NEGATIVE) H 03/02/20 01:20 Urine Glucose (UA) Negative mg/dL (NEGATIVE) 03/02/20 01:20 Urine Ketones Negative mg/dL (NEGATIVE) 03/02/20 01:20 Urine Blood 5 /ul (NEGATIVE) H 03/02/20 01:20 Urine Nitrate Negative (NEGATIVE) 03/02/20 01:20 Urine Bilirubin Negative mg/dl (NEGATIVE) 03/02/20 01:20 Prot Sulfosalicylic Acd Negative mg/dL (0) 03/02/20 01:20 Urine Urobilinogen Normal EU/dl (NORMAL) 03/02/20 01:20 Ur Leukocyte Esterase Negative /ul (NEGATIVE) 03/02/20 01:20 Urine RBC 0-5 /hpf (0-5) 03/02/20 01:20 Urine WBC None seen /hpf (0-5) 03/02/20 01:20 Ur Epithelial Cells 0-5 /hpf (0-5) 03/02/20 01:20 Urine Bacteria None seen (NONE) 03/02/20 01:20 Urine Culture Comments No culture indicated 03/02/20 01:20 SARS-CoV-2 (PCR) Not detected (NotDetected) 03/01/20 23:50 Assessment/Plan - Narrative Narrative: Patient was evaluated medical chart was reviewed and decision to admit to observation for a diagnosis of cellulitis of lower extremities, venous stasis ulcers, KALA was made. Patient's GFR is below his baseline indicating an acute kidney injury possibly due to dehydration, he will need to be treated with IV fluids. We will keep the patient overnight and start him on IV antibiotics and consult the wound team for evaluation and treatment of his stasis ulcers. We will repeat a CMP for tomorrow morning for reevaluation of electrolytes and renal function. - Assessment/Plan (1) Bacterial skin infection of leg Problem: Acute (2) Ulcers of both lower extremities, limited to breakdown of skin Problem: Acute (3) Umbilical hernia without obstruction and without gangrene Problem: Chronic (4) Cellulitis Problem: Acute Qualifiers: Site of cellulitis of extremity: lower extremity (5) KALA (acute kidney injury) Problem: Acute (6) Infected stasis ulcer Problem: Acute
[2020-03-02] MEDS: VANCOMYCIN/WATER FOR INJ (PEG) 1.5 GM/300 ML BAG IV SCH (15:46)
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
[2020-03-02] MEDS ORDERED: GABAPENTIN 300 MG CAPSULE PO SCH (21:00)
[2020-03-02] MEDS ORDERED: LORATADINE 10 MG TABLET PO SCH (21:00)
[2020-03-03] MEDS: VANCOMYCIN/WATER FOR INJ (PEG) 1.5 GM/300 ML BAG IV SCH (00:38)
[2020-03-03] MEDS: PIPERACILLIN SODIUM/TAZOBACTAM 3.375 GM in DEXTROSE 5 % IN WATER 100 ML IV SCH ×4 (03:27→10:07)
[2020-03-03 06:20] LABS: Albumin * 1.9 gm/dl (3.4-5.0); Anion Gap 7.9 mmol/L (6.8-13.8); BUN/Creatinine Ratio 9.2 (9.0-21.6); Bilirubin, Total 0.6 mg/dL (0.0-1.1); Ca. Corrected For Albumin 9.4 mg/dL (8.4-10.2); Carbon Dioxide 29.1 mmol/L (24-32.6); Total Protein 6.2 gm/dL (6.2-8.2)
[2020-03-03] MEDS: GABAPENTIN 600 MG TABLET PO SCH (08:06)
[2020-03-03] MEDS: SPIRONOLACTONE 25 MG TABLET PO SCH (08:06)
[2020-03-03] MEDS: MOMETASONE FUROATE TP SCH (08:07)
--- NOTE | 2020-03-03 09:07 | PN ---
Subjective - Date and Time Seen Date: 03/03/20 Time: 08:30 Subjective Narrative: Patient is much improved today. He states his leg pain has decreased significantly. He was showered, and the odor has resolved. The dressings are clean and dry. The wound culture results are not complete. Objective - Review of Systems Generalized/Overall Review: Denies: Chills, Fever EENTM: Denies: Nose Congestion Respiratory: Reports: Cough, Shortness of Breath Cardiac: Reports: Edema. Denies: Chest Pain Abdominal: Denies: Nausea, Vomiting Musculoskeletal Complaints: Denies: Muscle Pain Skin: Reports: Lesions - Vitals Vitals: Last Vital Signs Temp 36.7 C 03/03/20 07:00 Pulse 76 03/03/20 07:00 Resp 18 03/03/20 07:00 BP 99/41 03/03/20 07:00 Pulse Ox 91 L 03/03/20 07:00 - Abnormal Lab Findings Abnormal Lab Findings: Abnormal Lab Results 03/03/20 Range/Units 05:45 Potassium 3.0 L D (3.4-4.6) mmol/L Creatinine 1.42 H (0.4-1.4) mg/dL Est GFR (Non-Af Amer) 51 L D (60-130) mL/min Albumin 1.9 L (3.4-5.0) gm/dl - Exam Exam Narrative: No odor noted. Personal hygiene improved. Constitutional: Present: Alert, Oriented x3, No distress ENT Exam: Present: hearing grossly normal Skin Exam: Present: warm/dry, other - Minimal drainage to areas on bilateral lower extremities. Mild erythema. His toes remain swollen and fissured. Assessment/Plan - Problems/Diagnosis (1) Bacterial skin infection of leg Problem: Acute Narrative: Patient symptoms are improved with treatment. Recommend Aquacel Ag to areas of drainage on bilateral lower extremities, cover with gauze and secured with tape. Patient will wear 2 layers of Tubigrip for compression. He will keep his legs elevated when possible.
[2020-03-03] MEDS: FUROSEMIDE 20 MG TABLET PO SCH (10:25)
[2020-03-03] MEDS: LISINOPRIL 5 MG TABLET PO SCH (10:30)
[2020-03-03] MEDS ORDERED: POTASSIUM CHLORIDE 20 MEQ TABLET.SA PO ONE (12:02)
--- NOTE | 2020-03-03 13:33 | DS ---
(1) Bacterial skin infection of leg Problem: Acute (2) Ulcers of both lower extremities, limited to breakdown of skin Problem: Acute (3) Umbilical hernia without obstruction and without gangrene Problem: Chronic (4) Cellulitis Problem: Acute Qualifiers: Site of cellulitis of extremity: lower extremity (5) KALA (acute kidney injury) Problem: Acute (6) Infected stasis ulcer Problem: Acute Date of Discharge:: 03/03/20 Hospital Course: 79-year-old male admitted for bilateral cellulitis of his lower extremities and acute kidney injury was evaluated at bedside was found to be afebrile and in no acute distress. Patient has been receiving dual IV antibiotics with Vanco and Zosyn and he is tolerating the treatment without any issues. This morning he reports less pain in his lower extremities but says since the wound care team applied the medicated creams and dressings to his lower extremities he has been very itchy. It was explained to patient that this is normal and it could mean that his cellulitis is resolving and his swelling is decreasing which causes the skin to itch, this problem can be resolved with some antiitch cream. During our conversation we also discussed his issues with making it to his appointments and he informed me that he has problems with transportation, however he was informed that his medical insurance covers transportation but he needs to take action and schedule his transportation days before his appointments to give the drivers enough time to come get him. He said that he would try to do better. We also discussed his hygiene which appears to be an issue for the patient, he comes to his appointments with a foul odor and dirty clothing. So when questioned, he reports that he does not take daily showers when he has dressings on his lower extremities to avoid wetting them so he tends to take a sponge bath. It was explained to patient that there are plastic leg coverings sold at the medical supply stores to avoid wetting the dressings on his lower extremities however it is important to keep proper body hygiene to avoid infections such as the cellulitis. He said he would make more of an effort. The wound cultures taken of the ulcers on his lower extremities are growing gram-negative bacilli, final susceptibility report is pending. Patient had been started on p.o. Levaquin on outpatient basis but never completed the course, so we will keep him on Levaquin for its good coverage on gram-negative bacilli. So he will be discharged with a prescription for additional days of the antibiotic and with instructions to follow-up with myself his PCP and 12 to 15 days. Attempts to set up home health with nursing services and a bath aide has been made but it is difficult to find placement or acceptance of the patient by the local home health agencies, a request has been made to [facility] and we are awaiting a decision on whether or not they will accept him. In the meantime, he is to keep his appointments with the wound care center for continued treatment to his venous stasis ulcers. Patient's potassium was low on this morning's labs therefore potassium replacement was ordered, so he will also be discharged with orders for CMP to be done in 1 week. Mr. Doyle is homebound due to significant issues with ambulation secondary to advanced COPD and significant obesity. The need for custodial is due to management of the patient's chronic conditions and wound care. He also has a need for a home health aide to assist with activities of daily living such as bathing and dressing in the morning. The need for home health care skilled services is directly related to the time spent [id number] with the patient. Procedures Performed: none Results and Findings: Pending Mircobiology Results 03/01/20 23:24 Leg - Right Wound Culture - Preliminary Gram Negative Bacilli 03/01/20 23:24 Ankle - Bilateral Wound Culture - Preliminary Gram Negative Bacilli Gram Negative Bacilli#2 03/01/20 23:25 Blood Blood Culture - Preliminary NO GROWTH 24 HOURS 03/01/20 23:20 Blood Blood Culture - Preliminary NO GROWTH 24 HOURS Lab Pending Results 03/01/20 23:20: Lactic Acid, Venous 1.9 03/01/20 23:25: WBC 7.8, RBC 4.01 L, Hgb 11.9 L, Hct 38.0 L, MCV 94.8, MCH 29.7, MCHC 31.3 L, RDW 14.5 H, Plt Count 390, MPV 8.7, Immature Gran % (Auto) 0.80 H, Immature Gran # (Auto) 0.06 H, Neutrophils % 65.5, Lymphocytes % 15.6 L, Monocytes % 12.9 H, Eosinophils % 4.0 H, Basophils % 1.2 H, Nucleated RBC % 0.0, Neutrophils # 5.1, Lymphocytes # 1.21 L, Monocytes # 1.0, Eosinophils # 0.3, Absolute Basophils 0.1 03/01/20 23:25: Sodium 136, Plasma Sodium 136, Potassium 4.0, Chloride 99, Carbon Dioxide 27.4, Anion Gap 13.6, BUN 22 D, Creatinine 1.70 H D, Est GFR (Non-Af Amer) 41 L D, BUN/Creatinine Ratio 12.9, Random Glucose 101, Calcium 9.3, Calcium Adj for Albumin 9.9, Total Bilirubin 0.6, AST 47, ALT 30, Alkaline Phosphatase 72, Total Protein 8.4 H, Albumin 2.9 L 03/01/20 23:50: SARS-CoV-2 (PCR) Not detected 03/02/20 01:20: Urine Color Yellow, Urine Appearance Clear, Urine pH 5.5, Ur Specific [place] 1.025, Urine Protein 15 H, Urine Glucose (UA) Negative, Urine Ketones Negative, Urine Blood 5 H, Urine Nitrate Negative, Urine Bilirubin Negative, Prot Sulfosalicylic Acd Negative, Urine Urobilinogen Normal, Ur Leukocyte Esterase Negative, Urine RBC 0-5, Urine WBC None seen, Ur Epithelial Cells 0-5, Urine Bacteria None seen, Urine Culture Comments No culture indicated 03/03/20 05:45: Sodium 134, Plasma Sodium 134, Potassium 3.0 L D, Chloride 100, Carbon Dioxide 29.1, Anion Gap 7.9, BUN 13, Creatinine 1.42 H, Est GFR (Non-Af Amer) 51 L D, BUN/Creatinine Ratio 9.2, Random Glucose 98, Calcium 8.0, Calcium Adj for Albumin 9.4, Total Bilirubin 0.6, AST 32, ALT 22, Alkaline Phosphatase 64, Total Protein 6.2, Albumin 1.9 L Discharge Location: Home Disposition: Home Health Service Home Health Agency: Other - [facility] Condition: Stable Face to Face Encounter completed per CMS Guidelines: Yes Discharge Activity: Activity as tolerated Discharge Diet: Low salt Referrals: Cynthia Juan MD [Primary Care Provider] - Problem Oriented Discharge Instructions to Patient/Family: Cellulitis, Adult, [id number] Additional Patient Instructions (free text): To arrange transportation to your appointments, call . You have transportation benefits through [employer]. You have to arrange transportation for office visits at least 3 days in advance. Aquacel Ag to areas of drainage on bilateral lower extremities, cover with gauze and secured with tape. Wear 2 layers of Tubigrip for compression. Keep his legs elevated when possible. Prescriptions (Any new or edited meds): Levofloxacin [Levaquin] 500 mg PO DAILY #10 tab Transmission Status: Received by [facility] #[id number] Complete Home Medications List: Complete Home Medication List: albuterol sulfate 2.5 mg IH QID PRN #180 ml 12/02/18 Mometasone Furoate 1 appl TOPICAL DAILY #45 cream..g. 04/12/19 albuterol sulfate 90 mcg/actuation aerosol inhaler 2 inh IH Q4H PRN #6.7 g 12/02/19 cetirizine 10 mg tablet 10 mg PO HS #90 tab 12/02/19 furosemide 20 mg tablet 20 mg PO DAILY #90 tab 12/02/19 gabapentin 300 mg capsule 300 mg PO HS #90 cap 12/02/19 gabapentin 600 mg tablet 600 mg PO BID #180 tab 12/02/19 lisinopril 5 mg tablet 5 mg PO DAILY #90 tab 12/02/19 spironolactone 50 mg tablet 50 mg PO BID #60 tab 12/02/19 Levofloxacin [Levaquin] 500 mg PO DAILY #10 tab 03/03/20 Amb Orders for Discharge: Comprehensive Metabolic Panel Time Frame: 1 Week, Facility: [facility], Location: Laboratory
[2020-03-03 17:37] VITALS: BP 142/63
== END 2020-03-03 19:19 | disposition home health service (06) ==
LOC: ER 22:46 → MS 03-02 00:01 → INTOOBSV 03-02 00:01 → MS 03-02 01:23
PROVIDERS: ADMIT Family Medicine; ATTEND Family Medicine
DX: N17.9 Acute kidney failure, unspecified; J44.9 Chronic obstructive pulmonary disease, unspecified; I10 Essential (primary) hypertension; B96.89 Other specified bacterial agents as the cause of diseases classified elsewhere; L97.921 Non-pressure chronic ulcer of unspecified part of left lower leg limited to breakdown of skin; L03.115 Cellulitis of right lower limb; L03.116 Cellulitis of left lower limb; E11.9 Type 2 diabetes mellitus without complications; Z72.0 Tobacco use; E66.01 Morbid (severe) obesity due to excess calories; L97.911 Non-pressure chronic ulcer of unspecified part of right lower leg limited to breakdown of skin